=== PATIENT | male | born 1945 | race Two or more races ===

== ENCOUNTER → 2024-02-03 | Outpatient (CLI) | payer MEDICARE, MEDICAID, SELFPAY ==
[2024-02-03 09:36] LABS: Collection Type, Urine Clean Catch; Squamous Epithelial Cell,Urine 0 /hpf (0-5); WBC,Urine 0 /hpf (0-5)
[2024-02-03 09:59] LABS: Basophils % (Auto) 1 % (0-2.5); Eosinophils # (Auto) 0.1 Thou/mm3 (0.0-0.5); Eosinophils % (Auto) 2 % (0-10); Hematocrit 39.8 % (41.0-53.0); Hemoglobin 13.6 g/dL (13.5-16.0); Immature Granulocytes % (Auto) 0 % (0-0); Immature Granulocytes Auto 0.02 Thou/mm3 (0.00-0.00); Lymphocytes # (Auto) 1.4 Thou/mm3 (1.0-4.8); Lymphocytes % (Auto) 23 % (10-50); Mean Corpuscular HGB Conc 34.2 g/dl (31.0-37.0); Mean Corpuscular Hemoglobin 32.2 pg (25.0-35.0); Mean Corpuscular Volume 94 fL (80-100); Monocytes # (Auto) 0.6 Thou/mm3 (0.0-0.8); Monocytes % (Auto) 9 % (0-12); Neutrophils # (Auto) 3.9 Thou/mm3 (1.8-7.7); Neutrophils % (Auto) 64 % (37-80); Nucleated Red Blood Cell % 0 /100 WBC (0); Platelet Count 113 Thou/mm3 (140-440); RDW Standard Deviation 43.8 fL (35.1-43.9); Red Blood Count 4.23 Miln/mm3 (4.50-5.90); White Blood Count 6.1 Thou/mm3 (3.8-10.6)
[2024-02-03 10:01] LABS: Bilirubin,Urine Negative (Negative); Blood,Urine Negative (Negative); Clarity,Urine Clear (Clear/Hazy); Color,Urine Colorless (Lt Yel-Yel); Glucose, Urine Negative (Negative); Ketones,Urine Negative (Negative); Leukocyte Esterase,Urine Negative (Negative); Nitrite,Urine Negative (Negative); Protein,Urine Negative (Neg - Trace); RBC,Urine < 1 /hpf (0-3); Specific Gravity,Urine 1.012 (1.001-1.035); Urobilinogen,Urine Negative mg/dL (0.0-1.0)
[2024-02-03 10:04] LABS: Glucose Estimated Average 128 mg/dL (80-131); Hemoglobin A1C 6.1 % Hgb (4.8-6.0)
[2024-02-03 10:11] LABS: Creatinine MALB Rnd Ur 49 mg/dL (30-125); Microalbumin Creat Ratio 22 mg/gCrea (<30); Microalbumin, Random Urine 11 mg/L (0-300)
[2024-02-03 10:32] LABS: Parathyroid Hormone Intact 84.3 pg/ml (18.5-88.0)
[2024-02-03 10:41] LABS: Albumin, Serum 4.2 gm/dL (3.4-4.8); Anion Gap 3 (7-16); BUN/Creatinine Ratio 19 Ratio (12-20); Blood Urea Nitrogen 34 mg/dL (9-23); Calcium 9.5 mg/dL (8.3-10.6); Calcium (Corrected) 9.5 mg/dL (8.5-10.1); Carbon Dioxide 29.6 mMol/L (20.0-31.0); Chloride 105 mMol/L (98-107); Creatinine (Component) 1.8 mg/dL (0.6-1.3); Glucose 86 mg/dL (74-106); Magnesium 1.4 mg/dL (1.6-2.6); Osmolality,Calculated 282 (275-295); Phosphorous 3.6 mg/dL (2.4-5.1); Potassium 5.6 mMol/L (3.4-5.1); Sodium 138 mMol/L (136-145); eGFR 39 See Note
== END | disposition home or self-care (01) ==
LOC: COPL 09:14
PROVIDERS: PCP Internal Medicine; Referring Provider Internal Medicine; Visit Provider Internal Medicine
DX: I12.9 Hypertensive chronic kidney disease with stage 1 through stage 4 chronic kidney disease, or unspecified chronic kidney disease (principal); E11.22 Type 2 diabetes mellitus with diabetic chronic kidney disease; N18.30 Chronic kidney disease, stage 3 unspecified
CPT/HCPCS: 36415; 80069; 81001; 82043; 82570; 83036; 83735; 83970; 85025

== ENCOUNTER 2024-02-18 09:36 | Emergency (ER) | payer MEDICARE, MEDICAID, SELFPAY ==
[2024-02-18 09:43] VITALS: BP 158/82; PULSE 98; RESP 16; TEMP 36.4; O2SAT 96
[2024-02-18 09:44] VITALS: BMI 29.9
--- NOTE | 2024-02-18 10:14 | EKG_ITS ---
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
--- NOTE | 2024-02-18 10:14 | XR_ITS ---
Examination: AP chest single view Technique one AP portable upright chest single view Exam date and time: February 18, 2024 1019 hours Comparison July 08, 2023 INDICATIONS: Coughing weakness beginning today. FINDINGS: Mild prominence left ventricle No lobar pneumonia or pulmonary edema The osseous structures are intact IMPRESSION: No lobar pneumonia or pulmonary edema
[2024-02-18 11:28] LABS: Basophils % (Auto) 1 % (0-2.5); Eosinophils # (Auto) 0.1 Thou/mm3 (0.0-0.5); Eosinophils % (Auto) 1 % (0-10); Hematocrit 43.8 % (41.0-53.0); Hemoglobin 15.3 g/dL (13.5-16.0); Immature Granulocytes % (Auto) 0 % (0-0); Immature Granulocytes Auto 0.02 Thou/mm3 (0.00-0.00); Lymphocytes # (Auto) 0.9 Thou/mm3 (1.0-4.8); Lymphocytes % (Auto) 11 % (10-50); Mean Corpuscular HGB Conc 34.9 g/dl (31.0-37.0); Mean Corpuscular Hemoglobin 31.7 pg (25.0-35.0); Mean Corpuscular Volume 91 fL (80-100); Monocytes # (Auto) 0.6 Thou/mm3 (0.0-0.8); Monocytes % (Auto) 8 % (0-12); Neutrophils # (Auto) 6.3 Thou/mm3 (1.8-7.7); Neutrophils % (Auto) 79 % (37-80); Nucleated Red Blood Cell % 0 /100 WBC (0); Platelet Count 113 Thou/mm3 (140-440); RDW Standard Deviation 41.2 fL (35.1-43.9); Red Blood Count 4.82 Miln/mm3 (4.50-5.90); White Blood Count 7.9 Thou/mm3 (3.8-10.6)
--- NOTE | 2024-02-18 11:34 | EDNOTE_ITS ---
ED General RME/HPI General Chief complaint: Headache Stated complaint: H/A HIGH BLOOD PRESSURE Time Seen by Provider: 02/18/24 10:06 Arrival date/time: 02/18/24 09:36 RME / HPI RME / HPI narrative: 78 year old male with history of hypertension, diabetes, chronic renal insufficiency, rheumatoid arthritis presents to the ED BIBA from home for generalized weakness beginning 8 days ago and worsening this morning. reports this morning he was very weak and almost passed out which prompted her to call 911. additionally reports in the last 8 days patient is not eating or drinking, has nausea that is worse when he tries to eat, and has a dry cough. Patient states he has had no appetite and the food grosses me out . Denies fevers, chills, chest pain, shortness of breath, abdominal pain, diarrhea, constipation, or urinary symptoms. Denies any sick contacts at home. Related Data Home Medications ?Medication ?Instructions ?Recorded ?Confirmed pregabalin 150 mg capsule (Lyrica) 150 mg PO BID 04/18/21 09/02/23 ferrous sulfate 325 mg (65 mg 325 mg PO QDAY 06/28/21 09/02/23 iron) tablet losartan 50 mg-hydrochlorothiazide 1 tab PO QDAY 06/28/21 09/02/23 12.5 mg tablet tamsulosin 0.4 mg capsule 0.4 mg PO DAILY 06/28/21 09/02/23 atorvastatin 80 mg tablet 80 mg PO QPM 08/28/23 09/02/23 citalopram 20 mg tablet (Celexa) 20 mg PO QDAY 08/28/23 09/02/23 clopidogrel 75 mg tablet (Plavix) 75 mg PO QDAY 08/28/23 09/02/23 donepezil 23 mg tablet (Aricept) 23 mg PO QDAY 08/28/23 09/02/23 levothyroxine 25 mcg capsule 25 mcg PO QDAY 08/28/23 09/02/23 sitagliptin phosphate 100 mg 100 mg PO QDAY 08/28/23 09/02/23 tablet (Januvia) sumatriptan succinate 100 mg tablet 100 mg PO Q2H PRN Migraine Headache 08/28/23 09/02/23 zolpidem 10 mg tablet (Ambien) 10 mg PO HS 08/28/23 09/02/23 Previous Rx's ?Medication ?Instructions ?Recorded amoxicillin 875 mg-potassium 1 tab PO BID #10 tabs 01/17/24 clavulanate 125 mg tablet Allergies Allergy/AdvReac Type Severity Reaction Status Date / Time morphine Allergy Severe Itching Verified 01/05/24 10:26 Review of Systems Review of Systems Narrative Review of Systems: Gen: No fever, no chills, no weight loss, +generalized weakness EYES: No discharge, no visual changes, no pain HEENT: No ear pain, no congestion, no sore throat PULM: no shortness of breath, +cough, no congestion CV: No chest pain, no dyspnea on exertion, no palpitations, no chest tightness GI: +nausea, +decreased appetite, no vomiting, no diarrhea, no pain, no constipation : No frequency, no urgency,? no dysuria Musc/skel: No joint pain, no back pain Skin: No rash, no ecchymosis, no lesions Neuro: No headache Past Medical History Past Medical History NEUROLOGIC: Positive Dementia and Migraine CARDIAC: Positive Cardiac Disorders, Coronary Artery Disease, Hypercholesterolemia, Congestive Heart Failure and Hypertension GASTROINTESTINAL: Positive Gastrointestinal Disorders and Obesity GENITOURINARY: Positive Genitourinary Disorders, Renal Disease and Benign Prostatic Hyperplasia MUSCULOSKELETAL: Positive Musculoskeletal Disorders, Arthritis and Gout ENT: Positive Cataracts ENDOCRINE: Positive Endocrine Disorders, Diabetes Mellitus Type 2 and Hypothyroidism PSYCHO/SOCIAL: Positive Depression and Anxiety Family History FAMILY HISTORY: Positive Family Cardiac Disorders and Family Cancer Surgical History SURGICAL: Positive Cardiac Surgery, Coronary Stent, Angiogram and Abdominal Surgery Social History SMOKING STATUS: Never smoker SUBSTANCE USE: does not use ED Exam Narrative Physical exam: GENERAL APPEARANCE: AxOx4, no obvious distress, nontoxic appearing HEENT: NC, AT. MMM. EOMI, clear conjunctiva, oropharynx clear. NECK: Supple without lymphadenopathy. No stiffness or restricted ROM. HEART: Normal rate and regular rhythm, normal S1/S1, no m/r/g LUNGS: CTAB, moving air well. No crackles or wheezes are heard. ABDOMEN: Soft, nontender, nondistended with good bowel sounds heard. BACK: No midline C/T/L spine pain or deformity, No CVAT, no obvious deformity. EXTREMITIES: Without cyanosis, clubbing or edema. MUSCULOSKELETAL: FROM of all major joints, no chest tenderness NEUROLOGICAL: Grossly nonfocal. Alert and oriented, moving all 4 extremities. CN not formally tested but appear grossly intact. Skin: Warm and dry without any rash. Course Quality Measures none Orders Category Date Time Status Bedside COVID-19 Antigen Test NOW Care 02/18/24 10:14 Active Bedside Influenza A&B Antigen Test NOW Care 02/18/24 10:14 Completed EKG (ED ONLY) *Do not use* NOW Care 02/18/24 10:[address] head/brain wo con Stat Exams 02/18/24 13:20 Completed EKG (ED Only) Stat Exams 02/18/24 10:14 Draft XR chest 1V Stat Exams 02/18/24 10:14 Completed BNP [B-Type Natriuretic Peptide] Stat Lab 02/18/24 13:44 Completed CBC Stat Lab 02/18/24 11:19 Completed CMP [Comprehensive Metabolic Panel] Stat Lab 02/18/24 11:19 Completed Lactate (Lactic Acid) Stat Lab 02/18/24 13:44 Results Magnesium Stat Lab 02/18/24 13:44 Completed Magnesium Stat Lab 02/18/24 14:42 Ordered Procalcitonin Stat Lab 02/18/24 13:44 Completed TSH [Thyroid Stimulating Hormone] Stat Lab 02/18/24 13:44 Completed Troponin I Stat Lab 02/18/24 13:44 Completed Urinalysis Stat Lab 02/18/24 14:30 Completed Aspirin Med 02/18/24 13:19 Discontinued 325 mg PO X1 ONE Magnesium Sulfate 2 GM Ivpb [Magnesium Sulfate Ivpb] Med 02/18/24 14:43 Active 2 gm in 50 ml IV X1 Sodium Chloride 0.9% 1000 ml [Ns] 1,000 ml Med 02/18/24 10:13 Discontinued IV 999 mls/hr Sodium Chloride 0.9% 1000 ml [Ns] 1,000 ml Med 02/18/24 13:13 Discontinued IV 999 mls/hr Reevaluation(s) Reevaluation #1: Patient had a run of vtach. Added additional labs. RN reports patient has received 1L of fluids and slowly was able to walk to the restroom. Time: 13:15 Reevaluation #2: Re-assessment: patient had several tremors that is noted in complicating his telemetry. I discussed this with his and this has been a worsening issue for the last 2 to 3 years. He?s becoming increasingly forgetful and she also has noted that his appetite has been decreasing for the last several years. She only comes in now because he has eaten very little for the last three days almost nothing at times. This has been discussed with his doctor two weeks ago, he was started on Aricept. does not feel that has improved his tremors or appetite. They are still trying to get in to see his primary care physician Dr. Cardenas about these issues. He has been able to ambulate here in the emergency department. He appears to be improved since the IV fluids. She feels comfortable taking him home. She agrees to contact Dr. Cardenas's office for possible referral to neurology, Dr. Rendon, for further work up above his tremors and change in mental status. She will also follow up with Dr. Booker this coming week for recheck and starting his Aricept. Patient remains clinically stable throughout the emergency department visit. Re- assessment at the time of disposition demonstrates that the patient is in no acute distress. We reviewed all the results, analysis, and treatment plans. Patient is amenable to discharge. Strict return precautions were outlined. Patient was discharged in stable condition. Time: 15:42 Vital Signs Vital signs: Vital Signs Temperature 97.6 F 02/18/24 09:43 Pulse Rate 98 02/18/24 09:43 Respiratory Rate 16 02/18/24 09:43 Blood Pressure 158/82 H 02/18/24 09:43 Pulse Oximetry (%) 96 02/18/24 09:43 Oxygen Delivery Method Room Air 02/18/24 09:43 Pulse ox is 96% on room air which is adequate. [facility] Patient data External records reviewed:: [facility] previous records (I reviewed ED visit on 01/17/2024) and EMS form Clinical information provided by:: patient and spouse (- adds to hpi ) Social determinants that could affect healthcare access:: none Patient has the following chronic illnesses:: hypertension, diabetes, chronic renal insufficiency, rheumatoid arthritis How is presenting disease/condition affected by chronic disease/condition?: e xacerbated by Evaluation data The following diagnostics were reviewed and interpreted by me:: lab results, radiology exam(s) and EKG tracing(s) (Normal sinus rhythm, HR 92, normal axis, normal interval, no acute ST or T-wave changes, no STEMI. ) Lab and/or radiology exams considered but not ordered:: None Interpretation Summary: Ordering Physician: Thang Tobin MD Date of Service: 02/18/24 Procedure(s): XR chest 1V Accession Number(s): [id number] cc: Thang Tobin MD; Marta Bang MD; Lam Meraz MD~ Examination: AP chest single view Technique one AP portable upright chest single view Exam date and time: February 18, 2024 1019 hours Comparison July 08, 2023 INDICATIONS: Coughing weakness beginning today. FINDINGS: Mild prominence left ventricle No lobar pneumonia or pulmonary edema The osseous structures are intact IMPRESSION: No lobar pneumonia or pulmonary edema Dictated By:Lam Meraz MD Signed By:<Electronically signed by Lam Meraz MD in >02/18/24 1033 Procedure(s): CT head/brain wo con Accession Number(s): [id number] cc: Thang Tobin MD; Marta Bang MD; aLm Meraz MD~ Examination: CT brain head without contrast. 2-D sagittal coronal reconstructions Date and time of exam:February 18, 2024 1440 hours INDICATIONS: Headaches generalized weakness today, history stroke left basal ganglia COMPARISON: January 17, 2024 Comparison January 17, 2024 CTDI: vol (mGy):6.3 DLP: (mGycm):1202 Technique: Multiple CT axial sections of the brain have been obtained, 5 mm slice thickness. Contrast has not been administered. 2-D sagittal, coronal reconstructions have been obtained Low dose protocols were performed. One or more of the following dose reduction techniques were used; automated exposure control, adjustment of the mA and/or KV according to patient size, use of iterative reconstruction technique. Findings: No significant ventricular enlargement. Unchanged old infarct left basal ganglia with mild ipsilateral ventricular dilatation Intra-axial or extra-axial hemorrhage density is not seen. No mass effect or midline shift Basal cisterns are not remarkable. Fourth ventricle is midline. Cranial vault intact. Impression: Negative for acute hemorrhage, mass effect or midline shift Brain MRI follow-up would best assess for acute ischemic change Dictated By: Lam Meraz MD Medications Medications considered but not ordered:: None Medication administrations:: Medication Administration History Magnesium Sulfate (Magnesium Sulfate Ivpb) 2 gm in 50 mls @ 25 mls/hr IV X1 ONE Stop: 02/18/24 16:42 Discontinued Medications Aspirin (Aspirin 325 Mg Tablet) 325 mg PO X1 ONE Stop: 02/18/24 13:20 Last Admin: 02/18/24 13:47 Dose: 325 mg Documented By: ARF Sodium Chloride (Ns) 1,000 mls @ 999 mls/hr IV .Q1H1M ONE Stop: 02/18/24 11:13 Last Infusion: 02/18/24 13:46 Dose: Infused Documented By: Admin: 02/18/24 11:47 Dose: 999 mls/hr Documented By: ARF Sodium Chloride (Ns) 1,000 mls @ 999 mls/hr IV .Q1H1M ONE Stop: 02/18/24 14:13 Last Admin: 02/18/24 13:35 Dose: 999 mls/hr Documented By: ARF See above Consultations Consultation(s) initiated? (list below): No Diagnosis Differential Diagnosis ED Complaint MDM: Dehydration, electrolyte imbalance, viral illness, pneumonia Most likely diagnosis given after review of the tests above:: Coarse tremors Anorexia Chronic kidney disease Admission Indicated Admission indicated?: not indicated Explain why admission is indicated or not indicated:: Patient has no emergent abnormalities on his studies and can be managed on an outpatient basis. Admission Request Was there a request for admission?: No Disposition Plan Disposition Plan: Discharge Discharge Attestation Discharge Attestation: The patient and all family members were given an opportunity to ask questions and understood the discharge instructions. Discharge instructions specifically effects, indications for sooner follow up or return to the emergency department, and the expected course of current diagnosis. Patient condition: Stable Medical Decision Making Differential Diagnosis Differential Diagnosis: Dehydration, electrolyte imbalance, viral illness, pneumonia Lab Data 02/18/24 11:19 02/18/24 11:19 Labs: Lab Results 02/18/24 02/18/24 02/18/24 Range/Units 11:19 13:44 14:30 WBC 7.9 (3.8-10.6) Thou/mm3 RBC 4.82 (4.50-5.90) Miln/mm3 Hgb 15.3 (13.5-16.0) g/dL Hct 43.8 (41.0-53.0) % MCV 91 (80-100) fL MCH 31.7 (25.0-35.0) pg MCHC 34.9 (31.0-37.0) g/dl RDW Std Deviation 41.2 (35.1-43.9) fL Plt Count 113 L (140-440) Thou/mm3 Neut % (Auto) 79 (37-80) % Lymph % (Auto) 11 (10-50) % [place] % (Auto) 8 (0-12) % Eos % (Auto) 1 (0-10) % Baso % (Auto) 1 (0-2.5) % Neut # (Auto) 6.3 (1.8-7.7) Thou/mm3 Lymph # (Auto) 0.9 L (1.0-4.8) Thou/mm3 [place] # (Auto) 0.6 (0.0-0.8) Thou/mm3 Eos # (Auto) 0.1 (0.0-0.5) Thou/mm3 Baso # (Auto) 0.0 (0.0-0.2) Thou/mm3 Immature Gran # (Auto) 0.02 H (0.00-0.00) Thou/mm3 Absolute Nucleated RBC 0.00 (0.00-0.00) Thou/mm3 Immature Gran % 0 (0-0) % Nucleated RBC % 0 (0) /100 WBC Sodium 136 (136-145) mMol/L Potassium 5.6 H (3.4-5.1) mMol/L Chloride 103 (98-107) mMol/L Carbon Dioxide 28.3 (20.0-31.0) mMol/L Anion Gap 5 L (7-16) BUN 29 H (9-23) mg/dL Creatinine 2.2 H (0.6-1.3) mg/dL Estim Creat Clear Calc 28.1 L (>60) mL/min eGFR 30 L (60 - ) See Note BUN/Creatinine Ratio 13 (12-20) Ratio Glucose 109 H (74-106) mg/dL Calculated Osmolality 278 (275-295) Lactic Acid 2.6 H (0.4-2.0) mMol/L Calcium 10.3 (8.3-10.6) mg/dL Corrected Calcium 10.3 H (8.5-10.1) mg/dL Magnesium 1.4 L (1.6-2.6) mg/dL Total Bilirubin 0.8 (0.3-1.2) mg/dL AST 62 H (0-34) U/L ALT 74 H (10-49) U/L Alkaline Phosphatase 111 (46-116) U/L Troponin I < 0.020 (0.0-0.045) ng/mL B-Natriuretic Peptide 25 (0-100) pg/mL Total Protein 7.7 (5.7-8.2) gm/dL Albumin 4.6 (3.4-4.8) gm/dL Globulin 3.1 (2.3-3.5) gm/dL Albumin/Globulin Ratio 1.5 (1.2-2.2) Procalcitonin Cancelled 0.15 TSH 1.86 (0.55-4.78) uIU/mL Ur Collection Type Clean Catch Urine Color Yellow (Lt Yel-Yel) Urine Clarity Clear (Clear/Hazy) Urine pH 6.5 (5.0-7.0) Ur Specific [place] 1.018 (1.001-1.035) Urine Protein Trace (Neg - Trace) Urine Glucose (UA) Negative (Negative) Urine Ketones 1+ A (Negative) Urine Blood Negative (Negative) Urine Nitrite Negative (Negative) Urine Bilirubin Negative (Negative) Urine Urobilinogen (Auto) Negative (0.0-1.0) mg/dL Ur Leukocyte Esterase Negative (Negative) Urine RBC 15 H (0-3) /hpf Urine WBC 5 (0-5) /hpf Ur Squamous Epith Cells < 1 (0-5) /hpf Urine Bacteria None (None) Hyaline Casts < 1 (0-1) /hpf Urine Sperm Present A (None) Discharge Plan Plan Patient Disposition: HOME (Self Care) Prescriptions/Referrals Prescriptions/Med Rec: No Action pregabalin [Lyrica] 150 mg capsule 150 mg PO BID tamsulosin 0.4 mg capsule 0.4 mg PO DAILY Patient Comments: TAKE 1 CAPSULE BY MOUTH EVERY DAY 1/2 HOUR FOLLOWING THE SAME MEAL EACH DAY Rx Instructions: 30 min after same meal each day ferrous sulfate 325 mg (65 mg iron) tablet 325 mg PO QDAY Patient Comments: TAKE 1 TABLET BY MOUTH EVERY DAY losartan-hydrochlorothiazide 50-12.5 mg tablet 1 tab PO QDAY atorvastatin 80 mg Tablet 80 mg PO QPM sumatriptan succinate 100 mg Tablet 100 mg PO Q2H PRN (Reason: Migraine Headache) Rx Instructions: do not exceed 2 doses per 24 hrs clopidogrel [Plavix] 75 mg Tablet 75 mg PO QDAY citalopram [Celexa] 20 mg Tablet 20 mg PO QDAY zolpidem [Ambien] 10 mg Tablet 10 mg PO HS Januvia 100 mg Tablet 100 mg PO QDAY levothyroxine 25 mcg Capsule 25 mcg PO QDAY donepezil [Aricept] 23 mg Tablet 23 mg PO QDAY amoxicillin-pot clavulanate 875-125 mg tablet 1 tab PO BID Qty: 10 0RF Referrals: Marta Bang [Primary Care Provider] - In 1 week Problem List Clinical Impression: Coarse tremors, Anorexia, Chronic kidney disease Patient/Caregiver Discharge Instructions Education Materials: ED Diet for Chronic Kidney Disease Additional Instructions: Yousuf un seguimiento con garvey m?dico de atenci?n primaria para sergo posible derivaci?n a neurolog?a, el Dr. Hampton, para un an?lisis m?s detallado de suzanna temblores, movilidad y funci?n cognitiva. Yousuf un seguimiento con el Dr. Flower en 3 a 5 d?as para volver a controlarlo desde que comenz? garvey Aricept. Puede regresar al departamento de emergencias antes si los s?ntomas empeoran o si nota alg?n problema nuevo y preocupante. Print Language: Danish Stand Alone Forms: Tess Award Info., Patient Portal Info Letter
[2024-02-18 11:44] LABS: Alanine Aminotransferase 74 U/L (10-49); Albumin, Serum 4.6 gm/dL (3.4-4.8); Albumin/Globulin Ratio 1.5 (1.2-2.2); Alkaline Phosphatase 111 U/L (46-116); Anion Gap 5 (7-16); Aspartate Amino Transferase 62 U/L (0-34); BUN/Creatinine Ratio 13 Ratio (12-20); Bilirubin,Total 0.8 mg/dL (0.3-1.2); Blood Urea Nitrogen 29 mg/dL (9-23); Calcium 10.3 mg/dL (8.3-10.6); Calcium (Corrected) 10.3 mg/dL (8.5-10.1); Carbon Dioxide 28.3 mMol/L (20.0-31.0); Chloride 103 mMol/L (98-107); Creatinine (Component) 2.2 mg/dL (0.6-1.3); Estimated Creatinine Clearance 28.1 mL/min (>60); Globulin 3.1 gm/dL (2.3-3.5); Glucose 109 mg/dL (74-106); Osmolality,Calculated 278 (275-295); Potassium 5.6 mMol/L (3.4-5.1); Sodium 136 mMol/L (136-145); Total Protein 7.7 gm/dL (5.7-8.2); eGFR 30 See Note
[2024-02-18] MEDS: SODIUM CHLORIDE 0.9% 1000 ML 1,000 ML 999 ML IV ×2 (11:47→13:35)
[2024-02-18 12:00] VITALS: BP 173/78; PULSE 90; RESP 20; O2SAT 96
--- NOTE | 2024-02-18 13:20 | XR_ITS ---
Examination: CT brain head without contrast. 2-D sagittal coronal reconstructions Date and time of exam:February 18, 2024 1440 hours INDICATIONS: Headaches generalized weakness today, history stroke left basal ganglia COMPARISON: January 17, 2024 Comparison January 17, 2024 CTDI: vol (mGy):6.3 DLP: (mGycm):1202 Technique: Multiple CT axial sections of the brain have been obtained, 5 mm slice thickness. Contrast has not been administered. 2-D sagittal, coronal reconstructions have been obtained Low dose protocols were performed. One or more of the following dose reduction techniques were used; automated exposure control, adjustment of the mA and/or KV according to patient size, use of iterative reconstruction technique. Findings: No significant ventricular enlargement. Unchanged old infarct left basal ganglia with mild ipsilateral ventricular dilatation Intra-axial or extra-axial hemorrhage density is not seen. No mass effect or midline shift Basal cisterns are not remarkable. Fourth ventricle is midline. Cranial vault intact. Impression: Negative for acute hemorrhage, mass effect or midline shift Brain MRI follow-up would best assess for acute ischemic change
[2024-02-18] MEDS: Aspirin 325 MG TABLET PO (13:47)
[2024-02-18 14:12] LABS: Lactate (Lactic Acid) 2.6 mMol/L (0.4-2.0)
[2024-02-18 14:23] LABS: B-Type Natriuretic Peptide 25 pg/mL (0-100)
[2024-02-18 14:31] LABS: Magnesium 1.4 mg/dL (1.6-2.6); Procalcitonin 0.15 ng/ml (0.0-0.49); Thyroid Stimulating Hormone 1.86 uIU/mL (0.55-4.78); Troponin I < 0.020 ng/mL (0.0-0.045)
[2024-02-18 15:25] LABS: Collection Type, Urine Clean Catch
[2024-02-18 15:38] LABS: Bilirubin,Urine Negative (Negative); Blood,Urine Negative (Negative); Clarity,Urine Clear (Clear/Hazy); Color,Urine Yellow (Lt Yel-Yel); Glucose, Urine Negative (Negative); Hyaline Casts,Urine < 1 /hpf (0-1); Ketones,Urine 1+ (Negative); Leukocyte Esterase,Urine Negative (Negative); Nitrite,Urine Negative (Negative); PH,Urine 6.5 (5.0-7.0); Protein,Urine Trace (Neg - Trace); RBC,Urine 15 /hpf (0-3); Specific Gravity,Urine 1.018 (1.001-1.035); Squamous Epithelial Cell,Urine < 1 /hpf (0-5); Urobilinogen,Urine Negative mg/dL (0.0-1.0); WBC,Urine 5 /hpf (0-5)
[2024-02-18 15:46] LABS: Sperm,Urine Present
[2024-02-18] MEDS: Magnesium Sulfate 2 GM Ivpb 2 GM/50 ML BAG IV (16:07)
[2024-02-18 16:28] VITALS: BP 137/72; PULSE 87; RESP 10; TEMP 36.6; O2SAT 96
[2024-02-18 17:02] LABS: Reflex Lactate? Y
== END 2024-02-18 16:34 | disposition home or self-care (01) ==
PROVIDERS: Emergency Provider Emergency Medicine; PCP Internal Medicine
DX: G25.2 Other specified forms of tremor (principal); I13.0 Hypertensive heart and chronic kidney disease with heart failure and stage 1 through stage 4 chronic kidney disease, or unspecified chronic kidney disease; N18.9 Chronic kidney disease, unspecified; R63.0 Anorexia; R53.1 Weakness; R51.9 Headache, unspecified; R05.9 Cough, unspecified; E11.22 Type 2 diabetes mellitus with diabetic chronic kidney disease; I25.10 Atherosclerotic heart disease of native coronary artery without angina pectoris; E78.00 Pure hypercholesterolemia, unspecified; Z86.73 Personal history of transient ischemic attack (TIA), and cerebral infarction without residual deficits; Z79.84 Long term (current) use of oral hypoglycemic drugs
CPT/HCPCS: 36415; 70450; 71045; 80053; 81001; 83605; 83735; 83880; 84145; 84443; 84484; 85025; 87400; 87811; 93005; 99284; J3475; J7030; A9270

== ENCOUNTER → 2024-04-09 | Outpatient (CLI) | payer MEDICARE, MEDICAID, SELFPAY ==
[2024-04-09 09:08] LABS: Basophils % (Auto) 1 % (0-2.5); Eosinophils # (Auto) 0.4 Thou/mm3 (0.0-0.5); Eosinophils % (Auto) 7 % (0-10); Hematocrit 33.8 % (41.0-53.0); Hemoglobin 11.8 g/dL (13.5-16.0); Immature Granulocytes % (Auto) 0 % (0-0); Immature Granulocytes Auto 0.02 Thou/mm3 (0.00-0.00); Lymphocytes # (Auto) 1.6 Thou/mm3 (1.0-4.8); Lymphocytes % (Auto) 24 % (10-50); Mean Corpuscular HGB Conc 34.9 g/dl (31.0-37.0); Mean Corpuscular Hemoglobin 32.2 pg (25.0-35.0); Mean Corpuscular Volume 92 fL (80-100); Monocytes # (Auto) 0.7 Thou/mm3 (0.0-0.8); Monocytes % (Auto) 10 % (0-12); Neutrophils # (Auto) 3.9 Thou/mm3 (1.8-7.7); Neutrophils % (Auto) 59 % (37-80); Nucleated Red Blood Cell % 0 /100 WBC (0); Platelet Count 129 Thou/mm3 (140-440); RDW Standard Deviation 42.9 fL (35.1-43.9); Red Blood Count 3.67 Miln/mm3 (4.50-5.90); White Blood Count 6.7 Thou/mm3 (3.8-10.6)
[2024-04-09 09:34] LABS: Albumin, Serum 4.3 gm/dL (3.4-4.8); Anion Gap 5 (7-16); BUN/Creatinine Ratio 33 Ratio (12-20); Blood Urea Nitrogen 75 mg/dL (9-23); Calcium 9.8 mg/dL (8.3-10.6); Calcium (Corrected) 9.8 mg/dL (8.5-10.1); Carbon Dioxide 27.5 mMol/L (20.0-31.0); Chloride 108 mMol/L (98-107); Creatinine (Component) 2.3 mg/dL (0.6-1.3); Glucose 129 mg/dL (74-106); Osmolality,Calculated 303 (275-295); Sodium 140 mMol/L (136-145); eGFR 29 See Note
== END | disposition home or self-care (01) ==
LOC: COPL 08:05
PROVIDERS: PCP Internal Medicine; Referring Provider Internal Medicine; Visit Provider Internal Medicine
DX: I12.9 Hypertensive chronic kidney disease with stage 1 through stage 4 chronic kidney disease, or unspecified chronic kidney disease (principal); E11.22 Type 2 diabetes mellitus with diabetic chronic kidney disease; N18.30 Chronic kidney disease, stage 3 unspecified
CPT/HCPCS: 36415; 80069; 85025

== ENCOUNTER → 2024-04-15 | Outpatient (CLI) | payer MEDICARE, MEDICAID, SELFPAY ==
[2024-04-15 12:52] LABS: Collection Type, Urine Clean Catch; Squamous Epithelial Cell,Urine 0 /hpf (0-5)
[2024-04-15 13:17] LABS: Basophils % (Auto) 1 % (0-2.5); Eosinophils # (Auto) 0.4 Thou/mm3 (0.0-0.5); Eosinophils % (Auto) 5 % (0-10); Hematocrit 33.6 % (41.0-53.0); Hemoglobin 11.6 g/dL (13.5-16.0); Immature Granulocytes % (Auto) 0 % (0-0); Immature Granulocytes Auto 0.02 Thou/mm3 (0.00-0.00); Lymphocytes # (Auto) 1.4 Thou/mm3 (1.0-4.8); Lymphocytes % (Auto) 21 % (10-50); Mean Corpuscular HGB Conc 34.5 g/dl (31.0-37.0); Mean Corpuscular Hemoglobin 32.2 pg (25.0-35.0); Mean Corpuscular Volume 93 fL (80-100); Monocytes # (Auto) 0.7 Thou/mm3 (0.0-0.8); Monocytes % (Auto) 10 % (0-12); Neutrophils # (Auto) 4.2 Thou/mm3 (1.8-7.7); Neutrophils % (Auto) 62 % (37-80); Nucleated Red Blood Cell % 0 /100 WBC (0); Platelet Count 109 Thou/mm3 (140-440); RDW Standard Deviation 44.8 fL (35.1-43.9); White Blood Count 6.7 Thou/mm3 (3.8-10.6)
[2024-04-15 13:21] LABS: Glucose Estimated Average 128 mg/dL (80-131); Hemoglobin A1C 6.1 % Hgb (4.8-6.0)
[2024-04-15 13:24] LABS: Creatinine MALB Rnd Ur 125 mg/dL (30-125); Microalbumin, Random Urine < 3 mg/L (0-300)
[2024-04-15 13:30] LABS: Albumin, Serum 4.2 gm/dL (3.4-4.8); Anion Gap 3 (7-16); BUN/Creatinine Ratio 25 Ratio (12-20); Blood Urea Nitrogen 61 mg/dL (9-23); Carbon Dioxide 26.9 mMol/L (20.0-31.0); Chloride 109 mMol/L (98-107); Creatinine (Component) 2.4 mg/dL (0.6-1.3); Glucose 118 mg/dL (74-106); Osmolality,Calculated 295 (275-295); Phosphorous 4.7 mg/dL (2.4-5.1); Sodium 139 mMol/L (136-145); eGFR 27 See Note
[2024-04-15 13:40] LABS: Bilirubin,Urine Negative (Negative); Blood,Urine Negative (Negative); Clarity,Urine Clear (Clear/Hazy); Color,Urine Lt-Yellow (Lt Yel-Yel); Glucose, Urine Negative (Negative); Ketones,Urine Negative (Negative); Leukocyte Esterase,Urine Negative (Negative); Nitrite,Urine Negative (Negative); PH,Urine 6.5 (5.0-7.0); Protein,Urine Negative (Neg - Trace); RBC,Urine 4 /hpf (0-3); Specific Gravity,Urine 1.019 (1.001-1.035); Urobilinogen,Urine Negative mg/dL (0.0-1.0); WBC,Urine 1 /hpf (0-5)
== END | disposition home or self-care (01) ==
PROVIDERS: PCP Internal Medicine; Referring Provider Internal Medicine; Visit Provider Internal Medicine
DX: E11.9 Type 2 diabetes mellitus without complications (principal); I10 Essential (primary) hypertension; N17.9 Acute kidney failure, unspecified
CPT/HCPCS: 36415; 80069; 81001; 82043; 82570; 83036; 85025

== ENCOUNTER → 2024-04-20 | Outpatient (CLI) | payer MEDICARE, MEDICAID, SELFPAY ==
[2024-04-20 11:27] LABS: Basophils % (Auto) 1 % (0-2.5); Eosinophils # (Auto) 0.4 Thou/mm3 (0.0-0.5); Eosinophils % (Auto) 7 % (0-10); Hematocrit 33.4 % (41.0-53.0); Hemoglobin 11.5 g/dL (13.5-16.0); Immature Granulocytes % (Auto) 0 % (0-0); Immature Granulocytes Auto 0.02 Thou/mm3 (0.00-0.00); Lymphocytes % (Auto) 16 % (10-50); Mean Corpuscular HGB Conc 34.4 g/dl (31.0-37.0); Mean Corpuscular Hemoglobin 32.3 pg (25.0-35.0); Mean Corpuscular Volume 94 fL (80-100); Monocytes # (Auto) 0.6 Thou/mm3 (0.0-0.8); Monocytes % (Auto) 9 % (0-12); Neutrophils # (Auto) 4.3 Thou/mm3 (1.8-7.7); Neutrophils % (Auto) 67 % (37-80); Nucleated Red Blood Cell % 0 /100 WBC (0); Platelet Count 115 Thou/mm3 (140-440); RDW Standard Deviation 43.5 fL (35.1-43.9); Red Blood Count 3.56 Miln/mm3 (4.50-5.90); White Blood Count 6.4 Thou/mm3 (3.8-10.6)
[2024-04-20 11:31] LABS: Partial Thromboplastin Time 27.3 Seconds (22.0-36.0); Prothrombin Time 11.4 Seconds (9.0-12.2)
[2024-04-20 11:33] LABS: Collection Type, Urine Clean Catch; Squamous Epithelial Cell,Urine 0 /hpf (0-5)
[2024-04-20 11:45] LABS: Glucose Estimated Average 128 mg/dL (80-131); Hemoglobin A1C 6.1 % Hgb (4.8-6.0)
[2024-04-20 11:54] LABS: Alanine Aminotransferase 23 U/L (10-49); Albumin, Serum 4.4 gm/dL (3.4-4.8); Albumin/Globulin Ratio 1.7 (1.2-2.2); Alkaline Phosphatase 105 U/L (46-116); Anion Gap 7 (7-16); Aspartate Amino Transferase 16 U/L (0-34); BUN/Creatinine Ratio 23 Ratio (12-20); Bilirubin,Direct 0.2 mg/dL (0.0-0.3); Bilirubin,Total 0.5 mg/dL (0.3-1.2); Blood Urea Nitrogen 42 mg/dL (9-23); Calcium 9.5 mg/dL (8.3-10.6); Calcium (Corrected) 9.5 mg/dL (8.5-10.1); Carbon Dioxide 25.6 mMol/L (20.0-31.0); Cardiac Risk Estimate 2.9 RATIO (4.0-6.7); Chloride 107 mMol/L (98-107); Cholesterol 82 mg/dL (132-200); Creatinine (Component) 1.8 mg/dL (0.6-1.3); Free T4 (Free Thyroxine) 0.94 ng/dL (0.89-1.76); Globulin 2.6 gm/dL (2.3-3.5); Glucose 119 mg/dL (74-106); HDL Cholesterol 28 mg/dL (40-60); LDL Cholesterol,Calculated 30 mg/dL (0-130); Osmolality,Calculated 290 (275-295); Phosphorous 3.3 mg/dL (2.4-5.1); Potassium 5.4 mMol/L (3.4-5.1); Sodium 140 mMol/L (136-145); Thyroid Stimulating Hormone 1.98 uIU/mL (0.55-4.78); Triglycerides 122 mg/dL (30-150); Uric Acid 8.3 mg/dL (3.7-9.2); eGFR 39 See Note
[2024-04-20 11:55] LABS: C-Reactive Protein < 0.4 mg/dL (0.0-0.9)
[2024-04-20 11:57] LABS: Vitamin D 25 Hydroxy Total 75.6 ng/mL (7.3-40.2)
[2024-04-20 12:03] LABS: Sed Rate (ESR) 22 mm/hr (0-20)
[2024-04-20 12:05] LABS: Ferritin 197 ng/mL (10.5-307.3); Total Iron Binding Capacity 255 mcg/dL (250-425)
[2024-04-20 12:15] LABS: Iron 98 mcg/dL (65-175)
[2024-04-20 12:35] LABS: Bilirubin,Urine Negative (Negative); Blood,Urine Negative (Negative); Clarity,Urine Clear (Clear/Hazy); Color,Urine Lt-Yellow (Lt Yel-Yel); Culture Indicated,Urine Not Indicated; Glucose, Urine Negative (Negative); Ketones,Urine Negative (Negative); Leukocyte Esterase,Urine Negative (Negative); Nitrite,Urine Negative (Negative); PH,Urine 5.5 (5.0-7.0); Protein,Urine Negative (Neg - Trace); RBC,Urine 1 /hpf (0-3); Specific Gravity,Urine 1.014 (1.001-1.035); Urobilinogen,Urine Negative mg/dL (0.0-1.0); WBC,Urine < 1 /hpf (0-5)
[2024-04-20 12:45] LABS: Quantiferon-TB* See Sep Rpt
[2024-04-20 13:05] LABS: Creatinine MALB Rnd Ur 80 mg/dL (30-125); Microalbumin, Random Urine < 3 mg/L (0-300)
[2024-05-01 13:51] LABS: PSA, Free 0.22 ng/mL; PSA, Total 0.9 ng/mL (< OR = 4.0)
[2024-05-03 06:43] LABS: T3 Uptake* 29 % (22-35)
== END | disposition home or self-care (01) ==
LOC: COPL 10:31
PROVIDERS: PCP Internal Medicine; Referring Provider Nurse Practitioner Family; Visit Provider Nurse Practitioner Family
DX: Z00.00 Encounter for general adult medical examination without abnormal findings (principal); M54.2 Cervicalgia; R41.3 Other amnesia; N40.1 Benign prostatic hyperplasia with lower urinary tract symptoms; J45.909 Unspecified asthma, uncomplicated; E87.5 Hyperkalemia; Z23 Encounter for immunization; R53.83 Other fatigue; M25.562 Pain in left knee; E78.5 Hyperlipidemia, unspecified; R79.89 Other specified abnormal findings of blood chemistry; I12.9 Hypertensive chronic kidney disease with stage 1 through stage 4 chronic kidney disease, or unspecified chronic kidney disease; E11.22 Type 2 diabetes mellitus with diabetic chronic kidney disease; N18.32 Chronic kidney disease, stage 3b; R09.81 Nasal congestion; G89.29 Other chronic pain; M13.0 Polyarthritis, unspecified; M48.061 Spinal stenosis, lumbar region without neurogenic claudication; M75.121 Complete rotator cuff tear or rupture of right shoulder, not specified as traumatic; M25.511 Pain in right shoulder; R74.8 Abnormal levels of other serum enzymes; U07.1 COVID-19; N39.0 Urinary tract infection, site not specified; L29.9 Pruritus, unspecified; Z79.899 Other long term (current) drug therapy; M25.522 Pain in left elbow; R42 Dizziness and giddiness; G47.00 Insomnia, unspecified; E11.65 Type 2 diabetes mellitus with hyperglycemia; K59.04 Chronic idiopathic constipation; D50.9 Iron deficiency anemia, unspecified; R63.0 Anorexia; R29.898 Other symptoms and signs involving the musculoskeletal system; R11.2 Nausea with vomiting, unspecified; R10.9 Unspecified abdominal pain; Z20.820 Contact with and (suspected) exposure to varicella; L40.9 Psoriasis, unspecified; M54.9 Dorsalgia, unspecified; E03.9 Hypothyroidism, unspecified; F41.9 Anxiety disorder, unspecified; Z13.820 Encounter for screening for osteoporosis; K59.00 Constipation, unspecified; M25.561 Pain in right knee; M48.00 Spinal stenosis, site unspecified; M10.9 Gout, unspecified; Z09 Encounter for follow-up examination after completed treatment for conditions other than malignant neoplasm; R51.9 Headache, unspecified; G62.9 Polyneuropathy, unspecified; E78.2 Mixed hyperlipidemia
CPT/HCPCS: 36415; 80053; 80061; 81001; 82043; 82248; 82306; 82570; 82728; 83036; 83540; 83550; 84100; 84153; 84154; 84439; 84443; 84479; 84550; 85025; 85610; 85652; 85730; 86140; 86480

== ENCOUNTER → 2024-05-28 | Outpatient (CLI) | payer MEDICARE, MEDICAID, SELFPAY ==
[2024-05-28 08:41] LABS: Albumin, Serum 4.5 gm/dL (3.4-4.8); Anion Gap 10 (7-16); BUN/Creatinine Ratio 15 Ratio (12-20); Blood Urea Nitrogen 26 mg/dL (9-23); Calcium 9.7 mg/dL (8.3-10.6); Calcium (Corrected) 9.7 mg/dL (8.5-10.1); Chloride 111 mMol/L (98-107); Creatinine (Component) 1.7 mg/dL (0.6-1.3); Glucose 120 mg/dL (74-106); Osmolality,Calculated 299 (275-295); Phosphorous 3.2 mg/dL (2.4-5.1); Potassium 3.9 mMol/L (3.4-5.1); Sodium 148 mMol/L (136-145); eGFR 41 See Note
== END | disposition home or self-care (01) ==
LOC: COPL 07:23
PROVIDERS: PCP Internal Medicine; Referring Provider Internal Medicine; Visit Provider Internal Medicine
DX: N17.9 Acute kidney failure, unspecified (principal)
CPT/HCPCS: 36415; 80069

== ENCOUNTER 2024-07-04 10:48 | Emergency (ER) | payer MEDICARE, MEDICAID, SELFPAY ==
[2024-07-04 10:49] VITALS: BMI 32.9
[2024-07-04 11:17] VITALS: BP 154/78; PULSE 75; RESP 18; TEMP 36.4; O2SAT 97
--- NOTE | 2024-07-04 11:28 | PD.EDRME ---
Rapid Medical Screening Exam E Arrival date/time: 07/04/24 10:48 This is a 78-year-old male that comes in with complaints of not feeling well. Per patient family member at the bedside patient has not been acting normal. Per family member patient has a history of dementia but is more confused than usual. Patient states that he has a fever and that he is cold. Patient also complains of weakness and abdominal pain. Patient has a history of, diabetes, hypothyroidism, high blood pressure I waite hyperlipidemia, depressionve greeted and performed a focused initial assessment of this patient. Initial appropriate labs ordered at this time. A comprehensive ED assessment and evaluation of the patient and analysis of all test and completion of medical decision making process will be conducted by additional ED provider. Chief Complaint: Nausea/Vomiting/Diarrhea Time Seen by Provider: 07/04/24 11:09 Vital signs: Vital Signs Temperature 97.6 F 07/04/24 11:17 Pulse Rate 75 07/04/24 11:17 Respiratory Rate 18 07/04/24 11:17 Blood Pressure 154/78 H 07/04/24 11:17 Pulse Oximetry (%) 97 07/04/24 11:17 Oxygen Delivery Method Room Air 07/04/24 11:17
--- NOTE | 2024-07-04 11:31 | XR_ITS ---
Examination: PA lateral chest 2 views Technique: Upright PA lateral chest 2 views Exam date and time: July 06, 2024 at 12:10 PM Comparison February 18, 2024. Indications: Coughing beginning 5 days ago, onset fever today. Findings: Mild enlargement cardiac contour. Mild vascular congestion. No lobar pneumonia. Moderate osteopenia Impression: Mild enlargement cardiac contour with mild vascular congestion. No lobar pneumonia
--- NOTE | 2024-07-04 11:33 | XR_ITS ---
Examination: CT brain head without contrast. 2-D sagittal coronal reconstructions Date and time of exam:July 06, 2024 1224 hrs. Comparison February 18, 2024 Indications: Confusion altered mental status today CTDI: vol (mGy):56.1 DLP: (mGycm):1005 Technique: Multiple CT axial sections of the brain have been obtained, 5 mm slice thickness. Contrast has not been administered. 2-D sagittal, coronal reconstructions have been obtained Low dose protocols were performed. One or more of the following dose reduction techniques were used; automated exposure control, adjustment of the mA and/or KV according to patient size, use of iterative reconstruction technique. Findings: No significant ventricular enlargement. Again noted old infarct left basal ganglia Intra-axial or extra-axial hemorrhage density is not seen. No mass effect or midline shift Basal cisterns are not remarkable. Fourth ventricle is midline. Cranial vault intact. Impression: Negative for acute hemorrhage, mass effect or midline shift As clinically warranted, brain MRI follow-up would best assess for acute ischemic change
[2024-07-04 12:19] LABS: Collection Type, Urine Pedi-Bag
[2024-07-04 12:28] LABS: Bilirubin,Urine Negative (Negative); Blood,Urine 1+ (Negative); Clarity,Urine Clear (Clear/Hazy); Color,Urine Yellow (Lt Yel-Yel); Culture Indicated,Urine Not Indicated; Glucose, Urine Negative (Negative); Hyaline Casts,Urine < 1 /hpf (0-1); Ketones,Urine Negative (Negative); Leukocyte Esterase,Urine Negative (Negative); Nitrite,Urine Negative (Negative); Protein,Urine 2+ (Neg - Trace); RBC,Urine 2 /hpf (0-3); Specific Gravity,Urine 1.023 (1.001-1.035); Squamous Epithelial Cell,Urine < 1 /hpf (0-5); Urobilinogen,Urine Negative mg/dL (0.0-1.0); WBC,Urine 1 /hpf (0-5)
[2024-07-04 12:39] LABS: Amphetamine/Methamp Scrn,U Negative (Negative); Barbiturate Screen,Urine Negative (Negative); Benzodiazepines Screen,Urine Negative (Negative); Benzoylecgonine Screen, Ur Negative (Negative); Fentanyl Screen,Urine Negative (Negative); Opiate Screen,Urine Negative (Negative); THC Screen,Urine Positive (Negative)
[2024-07-04 12:47] LABS: Basophils % (Auto) 1 % (0-2.5); Eosinophils % (Auto) 0 % (0-10); Hematocrit 43.2 % (41.0-53.0); Hemoglobin 15.1 g/dL (13.5-16.0); Immature Granulocytes % (Auto) 1 % (0-0); Immature Granulocytes Auto 0.05 Thou/mm3 (0.00-0.00); Lymphocytes # (Auto) 1.5 Thou/mm3 (1.0-4.8); Lymphocytes % (Auto) 18 % (10-50); Mean Corpuscular Hemoglobin 31.1 pg (25.0-35.0); Mean Corpuscular Volume 89 fL (80-100); Monocytes # (Auto) 0.9 Thou/mm3 (0.0-0.8); Monocytes % (Auto) 11 % (0-12); Neutrophils # (Auto) 5.6 Thou/mm3 (1.8-7.7); Neutrophils % (Auto) 70 % (37-80); Nucleated Red Blood Cell % 0 /100 WBC (0); Platelet Count 131 Thou/mm3 (140-440); RDW Standard Deviation 42.2 fL (35.1-43.9); Red Blood Count 4.85 Miln/mm3 (4.50-5.90); White Blood Count 8.1 Thou/mm3 (3.8-10.6)
--- NOTE | 2024-07-04 12:52 | PC.NURSE ---
pt was brought in by family for diarrhea and not eating or drinking for 5 days. family concerned because pt's kidneys are not functioning well and they are afraid if dehydrated then they will get worse. pt was able to ambulate to room without difficulty. Asked if pt was having pain and family stated that pt was just c/o not feeling well . pt placed on cc monitor. pt awaiting to speak with ER doctor at this time
[2024-07-04 12:55] VITALS: BP 178/79; PULSE 75; RESP 19; TEMP 36.6; O2SAT 98
--- NOTE | 2024-07-04 12:55 | EDNOTE_ITS ---
<Statement entered by Bozena Thomas MD - 07/05/24 15:16> As co-signing physician, I was present and available for consult prn. I concur with the plan and care as documented by the midlevel provider. ED General RME/HPI General Chief complaint: Nausea/Vomiting/Diarrhea Stated complaint: NOT EATING/DRINKING, DIARRHEA X 4-5 DAYS Time Seen by Provider: 07/04/24 11:09 Arrival date/time: 07/04/24 10:48 CC: Not feeling well HPI the family member at bedside states the patient has been complaining that he has not been feeling well and has had no appetite for the past 5 days. Family ember is concerned about his diabetes, denies chest pain fever chills nausea vomiting. RME / HPI RME / HPI narrative: 07/04/24 10:48 This is a 78-year-old male that comes in with complaints of not feeling well. Per patient family member at the bedside patient has not been acting normal. Per family member patient has a history of dementia but is more confused than usual. Patient states that he has a fever and that he is cold. Patient also complains of weakness and abdominal pain. Patient has a history of, diabetes, hypothyroidism, high blood pressure I waite hyperlipidemia, depressionve greeted and performed a focused initial assessment of this patient. Initial appropriate labs ordered at this time. A comprehensive ED assessment and evaluation of the patient and analysis of all test and completion of medical decision making process will be conducted by additional ED provider. Related Data Home Medications ?Medication ?Instructions ?Recorded ?Confirmed pregabalin 150 mg capsule (Lyrica) 150 mg PO BID 04/1809/02/23 ferrous sulfate 325 mg (65 mg 325 mg PO QDAY 06/28/21 09/02/23 iron) tablet losartan 50 mg-hydrochlorothiazide 1 tab PO QDAY 06/2809/02/23 12.5 mg tablet tamsulosin 0.4 mg capsule 0.4 mg PO DAILY 06/28/2102/14 atorvastatin 80 mg tablet 80 mg PO QPM 08/28/23 citalopram 20 mg tablet (Celexa) 20 mg PO QDAY 4 09/02/23 clopidogrel 75 mg tablet (Plavix) 75 mg PO QDAY 09/02/23 donepezil 23 mg tablet (Aricept) 23 mg PO QDAY 4 09/02/23 levothyroxine 25 mcg capsule 25 mcg PO QDAY 08/28/23 0 09/02/23 sitagliptin phosphate 100 mg 100 mg PO QDAY 08/28/23 0 09/02/23 tablet (Januvia) sumatriptan succinate 100 mg tablet 100 mg PO Q2H PRN Migraine Headache 08/28/23 09/02/23 zolpidem 10 mg tablet (Ambien) 10 mg PO HS 08/28/23 Previous Rx's ?Medication ?Instructions ?Recorded amoxicillin 875 mg-potassium 1 tab PO BID #10 tabs clavulanate 125 mg tablet Allergies Allergy/AdvReac Type Severity Reaction Status Date / Time morphine Allergy Severe Itching Verified 07/04/24 10:53 Past Medical History Past Medical History NEUROLOGIC: Positive Dementia and Migraine; Negative Neurological Disorders or Seizures CARDIAC: Positive Cardiac Disorders, Coronary Artery Disease, Hypercholesterolemia, Congestive Heart Failure and Hypertension RESPIRATORY: Negative Chronic Obstructive Pulmonary Disease (COPD), Asthma, Bronchitis or Pneumonia GASTROINTESTINAL: Positive Gastrointestinal Disorders and Obesity; Negative Hepatitis or Gastroesophageal Reflux Disease GENITOURINARY: Positive Genitourinary Disorders, Renal Disease and Benign Prostatic Hyperplasia MUSCULOSKELETAL: Positive Musculoskeletal Disorders, Arthritis and Gout ENT: Positive Cataracts ENDOCRINE: Positive Endocrine Disorders, Diabetes Mellitus Type 2 and Hypothyroidism; Negative Diabetes Mellitus Type 1 HEMATOLOGIC: Negative Blood Disorders, Anemia or Sickle Cell Disease PSYCHO/SOCIAL: Positive Depression and Anxiety OTHER HISTORY: Negative Autoimmune Disease, Blood Transfusions, Blood Transfusion Reaction, Anesthesia Reactions, MRSA, VRSA, Vancomycin-Resistant Enterococci, Chicken Pox, Clostridium Difficile or Cancer Family History FAMILY HISTORY: Positive Family Cardiac Disorders and Family Cancer; Negative Family Psychiatric Problems, Family Respiratory Disorders, Family Gastrointestinal Problems, Family Surgery or Family Anesthesia Reaction Surgical History SURGICAL: Positive Cardiac Surgery, Coronary Stent, Angiogram and Abdominal Surgery; Negative Cardiac Catheterization Social History SMOKING STATUS: Never smoker SUBSTANCE USE: does not use ED Exam Narrative Physical exam: [General: Obese not in any acute distress Head normocephalic HEENT: Within acceptable limits Neck is supple nontender Chest equal chest rise nontender to palpation Respiratory: Clear to auscultation no wheezes crackles or rubs CV: Rate rhythm is regular no murmurs rubs or clicks Abdomen is distended secondary to body habitus soft nontender no masses positive bowel sounds all 4 quadrants Back: No CVA tenderness no spinous process tenderness from cervical spine thoracic and lumbar spine Skin: Intact no petechiae rash induration ulceration or crepitus Extremities: Moving all extremities against resistance cap refill less than 2 seconds neurosensory intact. No lower extremity edema Neuro: Awake alert oriented x3 Glascow coma 15 no focal deficits] Course Quality Measures none Orders Category Date Time Status CT head/brain wo con Stat Exams 07/04/24 11:33 Completed XR chest 2V Stat Exams 07/04/24 11:31 Completed CBC Stat Lab 07/04/24 12:21 Completed Comprehensive Metabolic Panel Stat Lab 07/04/24 12:21 Completed Drug Screen,Urine Stat Lab 07/04/24 12:00 Completed Lipase Stat Lab 07/04/24 12:21 Completed Urinalysis, C/S if Indicated Stat Lab 07/04/24 12:00 Completed Sodium Chloride 0.9% 1000 ml [Ns] 1,000 ml Med 07/04/24 13:30 Discontinued IV 999 mls/hr Vital Signs Vital signs: Vital Signs Temperature 97.6 F 07/04/24 11:17 Pulse Rate 75 07/04/24 11:17 Respiratory Rate 18 07/04/24 11:17 Blood Pressure 154/78 H 07/04/24 11:17 Pulse Oximetry (%) 97 07/04/24 11:17 Oxygen Delivery Method Room Air 07/04/24 11:17 [facility] Patient data External records reviewed:: [facility] previous records Clinical information provided by:: patient, family and spouse Social determinants that could affect healthcare access:: none Patient has the following chronic illnesses:: Diabetes hypertension on blood thinner How is presenting disease/condition affected by chronic disease/condition?: u neffected by Evaluation data The following diagnostics were reviewed and interpreted by me:: lab results and radiology exam(s) Lab and/or radiology exams considered but not ordered:: CBC shows no acute leukocytosis anemia thrombocytopenia CMP Urine is positive for protein and blood but no signs of UTI. UDS is positive for marijuana. CT of the head is negative for any acute finding requires emergent or immediate intervention. Chest x-ray is negative as interpreted by me read by radiology. Interpretation Summary: There is no acute finding quires emergent or immediate intervention patient is mildly dehydrated we will give a liter of fluid and discharge the patient home. Medications Medications considered but not ordered:: None Medication administrations:: Medication Administration History Discontinued Medications Sodium Chloride (Ns) 1,000 mls @ 999 mls/hr IV .Q1H1M ONE Stop: 07/04/24 14:30 Last Infusion: 07/04/24 15:15 Dose: Infused Documented By: Admin: 07/04/24 13:55 Dose: 999 mls/hr Documented By: DO None Consultations Consultation(s) initiated? (list below): No Diagnosis Differential Diagnosis ED Complaint MDM: Dehydration NOHEMI electrolyte imbalance Most likely diagnosis given after review of the tests above:: Dehydration Admission Indicated Admission indicated?: not indicated Explain why admission is indicated or not indicated:: Stable for discharge Admission Request Was there a request for admission?: No Disposition Plan Disposition Plan: Discharge Discharge Attestation Discharge Attestation: The patient and all family members were given an opportunity to ask questions and understood the discharge instructions. Discharge instructions specifically effects, indications for sooner follow up or return to the emergency department, and the expected course of current diagnosis. Patient condition: Stable Medical Decision Making Differential Diagnosis Differential Diagnosis: Dehydration NOHEMI electrolyte imbalance Lab Data 07/04/24 12:21 07/04/24 12:21 Labs: Lab Results 07/04/24 07/04/24 Range/Units 12:00 12:21 WBC 8.1 (3.8-10.6) Thou/mm3 RBC 4.85 (4.50-5.90) Miln/mm3 Hgb 15.1 (13.5-16.0) g/dL Hct 43.2 (41.0-53.0) % MCV 89 (80-100) fL MCH 31.1 (25.0-35.0) pg MCHC 35.0 (31.0-37.0) g/dl RDW Std Deviation 42.2 (35.1-43.9) fL Plt Count 131 L (140-440) Thou/mm3 Neut % (Auto) 70 (37-80) % Lymph % (Auto) 18 (10-50) % [place] % (Auto) 11 (0-12) % Eos % (Auto) 0 (0-10) % Baso % (Auto) 1 (0-2.5) % Neut # (Auto) 5.6 (1.8-7.7) Thou/mm3 Lymph # (Auto) 1.5 (1.0-4.8) Thou/mm3 [place] # (Auto) 0.9 H (0.0-0.8) Thou/mm3 Eos # (Auto) 0.0 (0.0-0.5) Thou/mm3 Baso # (Auto) 0.0 (0.0-0.2) Thou/mm3 Immature Gran # (Auto) 0.05 H (0.00-0.00) Thou/mm3 Absolute Nucleated RBC 0.00 (0.00-0.00) Thou/mm3 Immature Gran % 1 H (0-0) % Nucleated RBC % 0 (0) /100 WBC Sodium 146 H (136-145) mMol/L Potassium 3.7 (3.4-5.1) mMol/L Chloride 113 H (98-107) mMol/L Carbon Dioxide 20.2 (20.0-31.0) mMol/L Anion Gap 13 (7-16) BUN 27 H (9-23) mg/dL Creatinine 1.9 H (0.6-1.3) mg/dL Estim Creat Clear Calc 32.9 L (>60) mL/min eGFR 36 L (60 - ) See Note BUN/Creatinine Ratio 14 (12-20) Ratio Glucose 147 H (74-106) mg/dL Calculated Osmolality 298 H (275-295) Calcium 10.2 (8.3-10.6) mg/dL Corrected Calcium 10.2 H (8.5-10.1) mg/dL Total Bilirubin 0.9 (0.3-1.2) mg/dL AST 26 (0-34) U/L ALT 27 (10-49) U/L Alkaline Phosphatase 169 H (46-116) U/L Total Protein 9.0 H (5.7-8.2) gm/dL Albumin 5.0 H (3.4-4.8) gm/dL Globulin 4.0 H (2.3-3.5) gm/dL Albumin/Globulin Ratio 1.3 (1.2-2.2) Lipase 36 (12-53) U/L Ur Collection Type Pedi-Bag Urine Color Yellow (Lt Yel-Yel) Urine Clarity Clear (Clear/Hazy) Urine pH 6.0 (5.0-7.0) Ur Specific [place] 1.023 (1.001-1.035) Urine Protein 2+ A (Neg - Trace) Urine Glucose (UA) Negative (Negative) Urine Ketones Negative (Negative) Urine Blood 1+ A (Negative) Urine Nitrite Negative (Negative) Urine Bilirubin Negative (Negative) Urine Urobilinogen (Auto) Negative (0.0-1.0) mg/dL Ur Leukocyte Esterase Negative (Negative) Urine RBC 2 (0-3) /hpf Urine WBC 1 (0-5) /hpf Ur Squamous Epith Cells < 1 (0-5) /hpf Urine Bacteria None (None) Hyaline Casts < 1 (0-1) /hpf Ur Culture Indicated? Not Indicated Urine Opiates Screen Negative (Negative) Urine Fentanyl Screen Negative (Negative) Ur Barbiturates Screen Negative (Negative) U Amphetamin/Meth Scrn Negative (Negative) U Benzodiazepines Scrn Negative (Negative) U Cocaine Metab Screen Negative (Negative) U Marijuana (THC) Screen Positive A (Negative) Discharge Plan Plan Patient Disposition: HOME (Self Care) Patient condition on transfer: Stable Prescriptions/Referrals Prescriptions/Med Rec: No Action pregabalin [Lyrica] 150 mg capsule 150 mg PO BID tamsulosin 0.4 mg capsule 0.4 mg PO DAILY Patient Comments: TAKE 1 CAPSULE BY MOUTH EVERY DAY 1/2 HOUR FOLLOWING THE SAME MEAL EACH DAY Rx Instructions: 30 min after same meal each day ferrous sulfate 325 mg (65 mg iron) tablet 325 mg PO QDAY Patient Comments: TAKE 1 TABLET BY MOUTH EVERY DAY losartan-hydrochlorothiazide 50-12.5 mg tablet 1 tab PO QDAY atorvastatin 80 mg Tablet 80 mg PO QPM sumatriptan succinate 100 mg Tablet 100 mg PO Q2H PRN (Reason: Migraine Headache) Rx Instructions: do not exceed 2 doses per 24 hrs clopidogrel [Plavix] 75 mg Tablet 75 mg PO QDAY citalopram [Celexa] 20 mg Tablet 20 mg PO QDAY zolpidem [Ambien] 10 mg Tablet 10 mg PO HS Januvia 100 mg Tablet 100 mg PO QDAY levothyroxine 25 mcg Capsule 25 mcg PO QDAY donepezil [Aricept] 23 mg Tablet 23 mg PO QDAY amoxicillin-pot clavulanate 875-125 mg tablet 1 tab PO BID Qty: 10 0RF Referrals: Marta Bang [Primary Care Provider] - In 1 week Problem List Clinical Impression: Dehydration Patient/Caregiver Discharge Instructions Education Materials: ED Dehydration (Adult) Additional Instructions: Follow-up with your primary care provider encourage plenty of fluids. Print Language: Algerian Stand Alone Forms: Tess Award Info., Work/School Release, Patient Portal Info Letter PA/[employer]UCK [employer] MECH[employer]IC Supervising Physician PA/TRUCK [employer]ENCH MECHANIC Supervising Physician: Adrian March ENP
[2024-07-04 12:58] LABS: Alanine Aminotransferase 27 U/L (10-49); Albumin/Globulin Ratio 1.3 (1.2-2.2); Alkaline Phosphatase 169 U/L (46-116); Anion Gap 13 (7-16); Aspartate Amino Transferase 26 U/L (0-34); BUN/Creatinine Ratio 14 Ratio (12-20); Bilirubin,Total 0.9 mg/dL (0.3-1.2); Blood Urea Nitrogen 27 mg/dL (9-23); Calcium 10.2 mg/dL (8.3-10.6); Calcium (Corrected) 10.2 mg/dL (8.5-10.1); Carbon Dioxide 20.2 mMol/L (20.0-31.0); Chloride 113 mMol/L (98-107); Creatinine (Component) 1.9 mg/dL (0.6-1.3); Estimated Creatinine Clearance 32.9 mL/min (>60); Glucose 147 mg/dL (74-106); Lipase 36 U/L (12-53); Osmolality,Calculated 298 (275-295); Potassium 3.7 mMol/L (3.4-5.1); Sodium 146 mMol/L (136-145); eGFR 36 See Note
[2024-07-04] MEDS: SODIUM CHLORIDE 0.9% 1000 ML 1,000 ML 999 ML IV (13:55)
[2024-07-04 14:33] VITALS: BP 165/78; PULSE 71; RESP 18; TEMP 36.6; O2SAT 98
[2024-07-04 14:56] VITALS: BP 177/82; PULSE 82; RESP 19; TEMP 36.5; O2SAT 99
== END 2024-07-04 15:23 | disposition home or self-care (01) ==
PROVIDERS: Nurse Practitioner Family; Emergency Provider Emergency Medicine; PCP Internal Medicine
DX: E86.0 Dehydration (principal); E11.9 Type 2 diabetes mellitus without complications; E03.9 Hypothyroidism, unspecified; E78.00 Pure hypercholesterolemia, unspecified; I25.10 Atherosclerotic heart disease of native coronary artery without angina pectoris; I11.0 Hypertensive heart disease with heart failure; I50.9 Heart failure, unspecified; M10.9 Gout, unspecified; F03.93 Unspecified dementia, unspecified severity, with mood disturbance; F32.A Depression, unspecified; F03.94 Unspecified dementia, unspecified severity, with anxiety; E66.9 Obesity, unspecified; Z68.33 Body mass index [BMI] 33.0-33.9, adult; Z95.5 Presence of coronary angioplasty implant and graft
CPT/HCPCS: 36415; 70450; 71046; 80053; 80307; 81001; 83690; 85025; 96360; 99284; J7030

== ENCOUNTER → 2024-07-28 | Outpatient (CLI) | payer MEDICARE, MEDICAID, SELFPAY ==
[2024-07-28 08:44] LABS: Basophils % (Auto) 1 % (0-2.5); Eosinophils # (Auto) 0.1 Thou/mm3 (0.0-0.5); Eosinophils % (Auto) 2 % (0-10); Hemoglobin 13.4 g/dL (13.5-16.0); Immature Granulocytes % (Auto) 0 % (0-0); Immature Granulocytes Auto 0.01 Thou/mm3 (0.00-0.00); Lymphocytes # (Auto) 1.6 Thou/mm3 (1.0-4.8); Lymphocytes % (Auto) 24 % (10-50); Mean Corpuscular HGB Conc 36.2 g/dl (31.0-37.0); Mean Corpuscular Hemoglobin 31.7 pg (25.0-35.0); Mean Corpuscular Volume 88 fL (80-100); Monocytes # (Auto) 0.6 Thou/mm3 (0.0-0.8); Monocytes % (Auto) 9 % (0-12); Neutrophils # (Auto) 4.3 Thou/mm3 (1.8-7.7); Neutrophils % (Auto) 65 % (37-80); Nucleated Red Blood Cell % 0 /100 WBC (0); Parathyroid Hormone Intact 65.9 pg/ml (18.5-88.0); Platelet Count 131 Thou/mm3 (140-440); RDW Standard Deviation 42.3 fL (35.1-43.9); Red Blood Count 4.23 Miln/mm3 (4.50-5.90); White Blood Count 6.7 Thou/mm3 (3.8-10.6)
[2024-07-28 08:51] LABS: Vitamin D 25 Hydroxy Total 53.4 ng/mL (7.3-40.2)
[2024-07-28 08:55] LABS: Glucose Estimated Average 120 mg/dL (80-131); Hemoglobin A1C 5.8 % Hgb (4.8-6.0)
[2024-07-28 09:02] LABS: Alanine Aminotransferase 30 U/L (10-49); Albumin, Serum 4.3 gm/dL (3.4-4.8); Albumin/Globulin Ratio 1.6 (1.2-2.2); Alkaline Phosphatase 125 U/L (46-116); Anion Gap 8 (7-16); Aspartate Amino Transferase 22 U/L (0-34); BUN/Creatinine Ratio 18 Ratio (12-20); Bilirubin,Total 0.6 mg/dL (0.3-1.2); Blood Urea Nitrogen 28 mg/dL (9-23); Calcium 9.3 mg/dL (8.3-10.6); Calcium (Corrected) 9.3 mg/dL (8.5-10.1); Carbon Dioxide 26.8 mMol/L (20.0-31.0); Cardiac Risk Estimate 2.6 RATIO (4.0-6.7); Chloride 109 mMol/L (98-107); Cholesterol 83 mg/dL (132-200); Creatinine (Component) 1.6 mg/dL (0.6-1.3); Globulin 2.7 gm/dL (2.3-3.5); Glucose 108 mg/dL (74-106); HDL Cholesterol 32 mg/dL (40-60); LDL Cholesterol,Calculated 38 mg/dL (0-130); Osmolality,Calculated 293 (275-295); Potassium 4.8 mMol/L (3.4-5.1); Sodium 144 mMol/L (136-145); Thyroid Stimulating Hormone 4.48 uIU/mL (0.55-4.78); Triglycerides 65 mg/dL (30-150); eGFR 44 See Note
[2024-07-28 09:27] LABS: Collection Type, Urine Clean Catch
[2024-07-28 10:02] LABS: Bilirubin,Urine Negative (Negative); Blood,Urine Negative (Negative); Clarity,Urine Clear (Clear/Hazy); Color,Urine Yellow (Lt Yel-Yel); Glucose, Urine Negative (Negative); Ketones,Urine Negative (Negative); Leukocyte Esterase,Urine Negative (Negative); Nitrite,Urine Negative (Negative); PH,Urine 6.5 (5.0-7.0); Protein,Urine Trace (Neg - Trace); RBC,Urine 2 /hpf (0-3); Specific Gravity,Urine 1.019 (1.001-1.035); Squamous Epithelial Cell,Urine < 1 /hpf (0-5); Urobilinogen,Urine Negative mg/dL (0.0-1.0); WBC,Urine 1 /hpf (0-5)
[2024-07-28 10:31] LABS: Creatinine MALB Rnd Ur 116 mg/dL (30-125); Microalbumin Creat Ratio 51 mg/gCrea (<30); Microalbumin, Random Urine 59 mg/L (0-300)
== END | disposition home or self-care (01) ==
LOC: COPL 07:37
PROVIDERS: PCP Internal Medicine; Referring Provider Internal Medicine; Visit Provider Internal Medicine
DX: I12.9 Hypertensive chronic kidney disease with stage 1 through stage 4 chronic kidney disease, or unspecified chronic kidney disease (principal); E11.22 Type 2 diabetes mellitus with diabetic chronic kidney disease; N18.30 Chronic kidney disease, stage 3 unspecified; E78.5 Hyperlipidemia, unspecified; E55.9 Vitamin D deficiency, unspecified
CPT/HCPCS: 36415; 80053; 80061; 81001; 82043; 82306; 82570; 83036; 83970; 84443; 85025

== ENCOUNTER → 2024-09-30 | Outpatient (CLI) | payer MEDICARE, MEDICAID, SELFPAY ==
[2024-09-30 10:47] LABS: Albumin, Serum 4.4 gm/dL (3.4-4.8); Anion Gap 12 (7-16); BUN/Creatinine Ratio 19 Ratio (12-20); Blood Urea Nitrogen 33 mg/dL (9-23); Calcium 9.7 mg/dL (8.3-10.6); Calcium (Corrected) 9.7 mg/dL (8.5-10.1); Carbon Dioxide 25.6 mMol/L (20.0-31.0); Chloride 104 mMol/L (98-107); Creatinine (Component) 1.7 mg/dL (0.6-1.3); Glucose 138 mg/dL (74-106); Osmolality,Calculated 292 (275-295); Phosphorous 3.6 mg/dL (2.4-5.1); Potassium 4.1 mMol/L (3.4-5.1); Sodium 142 mMol/L (136-145); eGFR 41 See Note
== END | disposition home or self-care (01) ==
LOC: COPL 10:03
PROVIDERS: PCP Nurse Practitioner Family; Referring Provider Internal Medicine; Visit Provider Internal Medicine
DX: I10 Essential (primary) hypertension (principal)
CPT/HCPCS: 36415; 80069

== ENCOUNTER 2024-10-17 11:12 | Emergency (ER) | payer MEDICARE, MEDICAID, SELFPAY ==
[2024-10-17 11:13] VITALS: BMI 29.5
[2024-10-17 11:38] VITALS: BP 164/82; PULSE 107; RESP 19; TEMP 36.3; O2SAT 100
--- NOTE | 2024-10-17 11:48 | PD.EDANX ---
ED Anxiety RME/HPI General Chief Complaint: Anxiety Stated Complaint: TROUBLE BREATHING BECAUSE OF HIS ANXIETY X3DAYS Time Seen by Provider: 10/17/24 11:34 Arrival date/time: 10/17/24 11:12 Limitations: no limitations RME / HPI RME / HPI narrative: DR. URIBE MAIN ED EVALUATION: 79-year-old male with past medical history of kidney disease, anxiety, hypertension, dementia, and prior heart fluid removal surgery 12 years ago presents to the Emergency Department with complaints of anxiety and increased urination since at 11 PM. History provided by due to patient?s dementia. She reports associated anxiety and insomnia. Patient denies chest pain and abdominal pain. No recent travel. He uses THC gummies for insomnia. No tobacco, alcohol, or drug use. Allergic to morphine. Related Data Home Medications ?Medication ?Instructions ?Recorded ?Confirmed pregabalin 150 mg capsule (Lyrica) 150 mg PO BID 04/18/21 09/02/23 ferrous sulfate 325 mg (65 mg 325 mg PO QDAY 06/28/21 09/02/23 iron) tablet losartan 50 mg-hydrochlorothiazide 1 tab PO QDAY 06/28/21 09/02/23 12.5 mg tablet tamsulosin 0.4 mg capsule 0.4 mg PO DAILY 06/28/21 09/02/23 atorvastatin 80 mg tablet 80 mg PO QPM 08/28/23 09/02/23 citalopram 20 mg tablet (Celexa) 20 mg PO QDAY 08/28/23 09/02/23 clopidogrel 75 mg tablet (Plavix) 75 mg PO QDAY 08/28/23 09/02/23 donepezil 23 mg tablet (Aricept) 23 mg PO QDAY 08/28/23 09/02/23 levothyroxine 25 mcg capsule 25 mcg PO QDAY 08/28/23 09/02/23 sitagliptin phosphate 100 mg 100 mg PO QDAY 08/28/23 09/02/23 tablet (Januvia) sumatriptan succinate 100 mg tablet 100 mg PO Q2H PRN Migraine Headache 08/28/23 09/02/23 zolpidem 10 mg tablet (Ambien) 10 mg PO HS 08/28/23 09/02/23 Previous Rx's ?Medication ?Instructions ?Recorded amoxicillin 875 mg-potassium 1 tab PO BID #10 tabs 01/17/24 clavulanate 125 mg tablet Allergies Allergy/AdvReac Type Severity Reaction Status Date / Time morphine Allergy Severe Itching Verified 10/17/24 11:15 Review of Systems Review of Systems Systems Reviewed: All systems reviewed, normal except as documented Past Medical History Past Medical History NEUROLOGIC: Positive Dementia and Migraine CARDIAC: Positive Cardiac Disorders, Coronary Artery Disease, Hypercholesterolemia, Congestive Heart Failure and Hypertension GASTROINTESTINAL: Positive Gastrointestinal Disorders and Obesity GENITOURINARY: Positive Genitourinary Disorders, Renal Disease and Benign Prostatic Hyperplasia MUSCULOSKELETAL: Positive Musculoskeletal Disorders, Arthritis and Gout ENT: Positive Cataracts ENDOCRINE: Positive Endocrine Disorders, Diabetes Mellitus Type 2 and Hypothyroidism PSYCHO/SOCIAL: Positive Depression and Anxiety Family History FAMILY HISTORY: Positive Family Cardiac Disorders and Family Cancer Surgical History SURGICAL: Positive Cardiac Surgery, Coronary Stent, Angiogram and Abdominal Surgery Social History SMOKING STATUS: Never smoker SUBSTANCE USE: does not use ALCOHOL: Never ED Exam General Limitations: Present no limitations General appearance: Present alert and in no apparent distress Head Head exam: Present atraumatic, normocephalic and normal inspection Eye Eye exam: Present normal appearance, PERRL and EOMI ENT ENT exam: Present normal exam, normal oropharynx and mucous membranes moist Neck Neck exam: Present normal inspection, full ROM and trachea midline Chest Chest inspection: Present normal inspection and symmetric chest wall rise Respiratory Respiratory exam: Present normal lung sounds bilaterally Cardiovascular Cardiovascular exam: Present regular rate, normal rhythm and normal heart sounds Abdominal Exam Abdominal exam: Present soft and normal bowel sounds Extremities Exam Extremities exam: Present normal inspection and full ROM Back Exam Back exam: Present normal inspection and full ROM Neurological Exam Neurological exam: Present alert, oriented X3 and CN II-XII intact Psychiatric Psychiatric exam: Present normal affect and normal mood Skin Skin exam: Present warm, dry, intact and normal color Course Quality Measures none Vital Signs Vital signs: Vital Signs Temperature 97.4 F 10/17/24 11:38 Pulse Rate 107 H 10/17/24 11:38 Respiratory Rate 19 10/17/24 11:38 Blood Pressure 164/82 H 10/17/24 11:38 Pulse Oximetry (%) 100 10/17/24 11:38 Oxygen Delivery Method Room Air 10/17/24 11:38 Anxiety MDM Narrative MDM Narrative: Ashely Lindsey am scribing for and in the presence of Dr. Uribe. Patient is a 79-year-old male with medical history notable for dementia, heart failure, chronic kidney disease, hypothyroidism, hypertension, diabetes send emergency department with concerns for anxiety, and epigastric pain. Vital signs and exam as listed. Concern for ACS arrhythmia electrolyte abnormality viral syndrome hyperammonemia, urinary tract infection among others. Ordered labs, EKG, chest x-ray right upper quadrant ultrasound. Offered medication for symptom relief Labs without any significant acute hematologic abnormality. Patient with acute worsening of his chronic kidney disease. EKG without evidence of ischemia or arrhythmia. Troponin not elevated. Ammonia within normal limits. No significant acute electrolyte abnormalities. Patient with a transaminitis AST 107, ALT 180, alk phos 517. Ordered right upper quadrant ultrasound. Was read as having a thickened gallbladder wall however patient had a cholecystectomy many years ago, and this was confirmed on imaging performed previously at our facility that demonstrated on CT and ultrasound that he has an absent gallbladder. Patient has a history of heart failure this may be secondary to acute worsening of his cardiac disease however BNP is 63. Chest x-ray read as unremarkable and patient is on room air. Spoke at length with patient's again, and she states that the patient has been urinating in the house in various places, and not just going to the bathroom frequently. Even though previously she had mentioned that the patient's mentation is at his baseline, rather that this could be a sign of confusion. I offered a CT scan of the brain. She did state that she does not want her to be admitted to the hospital unless there is an abnormality on patient's CT of his brain. Patient's symptoms have been present for the last 3 weeks. He has no complaints. Patient seen ambulating in the emergency department multiple times as well as tolerating oral intake. Patient is not septic. Patient data External records reviewed:: [facility] previous records Clinical information provided by:: patient and spouse Social determinants that could affect healthcare access:: none Patient has the following chronic illnesses:: Kidney disease, anxiety, hypertension, dementia, and prior heart fluid removal surgery 12 years ago. He uses THC gummies for insomnia. No tobacco, alcohol, or drug use. Allergic to morphine. How is presenting disease/condition affected by chronic disease/condition?: exacerbated by Evaluation data The following diagnostics were reviewed and interpreted by me:: lab results, radiology exam(s) and EKG tracing(s) Lab and/or radiology exams considered but not ordered:: none Interpretation Summary: My interpretation: EKG performed at 1200 hours, sinus rhythm, rate 97, normal intervals, non specific ST-T wave changes, no cardiac alert Procedure(s): US abdomen limited Accession Number(s): [id number] cc: Angela Hutton; Lam Meraz MD; Demetra Uribe MD~ Examination: Abdomen sonogram, Limited Date and time of exam: October 17, 2024, 1418 hrs. Indications: Right upper abdominal pain today Technique: Real-time rendon scale transabdominal sonographic images of the upper abdomen obtained. Findings: Gallbladder sludge Negative for gallstones. Gallbladder wall is thickened 0.5 cm Common bile duct 0.4 cm Pancreatic head 3.0 cm. Liver 15.3 cm irregular contour fatty infiltration. Normal hepatopedal portal venous flow. Patent IVC Impression: Gallbladder wall is thickened, consider HIDA scan or MRCP follow-up to confirm cholecystitis Dictated By: Lam Meraz MD Procedure(s): XR chest 2V Accession Number(s): [id number] cc: Angela Hutton; Lam Meraz MD; Demetra Uribe MD~ Examination: PA lateral chest 2 views Technique: Upright PA lateral chest 2 views Date and time: October 17, 2024, 1152 hrs. Indications: Chest pain today. Findings: Mild prominence left ventricle. No pneumonia or pulmonary edema. The osseous structures are intact. Impression: No pneumonia or pulmonary edema. Dictated By: Lam Meraz MD Procedure(s): CT head/brain wo con Accession Number(s): [id number] cc: Angela Hutton; Lam Meraz MD; Demetra Uribe MD~ Examination: CT brain head without contrast. 2-D sagittal coronal reconstructions Date and time of exam:October 17, 2024 1646 hours INDICATIONS: Headaches and dizziness beginning 5 days ago COMPARISON: July 04, 2024 CTDI: vol (mGy):55.9 DLP: (mGycm):1187 Technique: Multiple CT axial sections of the brain have been obtained, 5 mm slice thickness. Contrast has not been administered. 2-D sagittal, coronal reconstructions have been obtained Low dose protocols were performed. One or more of the following dose reduction techniques were used; automated exposure control, adjustment of the mA and/or KV according to patient size, use of iterative reconstruction technique. Findings: No significant ventricular enlargement. 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 No mass effect or midline shift Basal cisterns are not remarkable. Fourth ventricle is midline. Cranial vault intact. Impression: Negative for acute hemorrhage, mass effect or midline shift As clinically warranted, brain MRI follow-up would best assess for acute ischemic change Dictated By: Lam Meraz MD Medications / Prescriptions Medications or Prescriptions considered but not ordered:: none Medication administrations:: see above if any Consultations Consultation(s) initiated? (list below): No Diagnosis Differential diagnosis anxiety: other (UTI, diabetic ketoacidosis, and anxiety-related polyuria) Admission Indicated Admission indicated?: not indicated Admission Request Was there a request for admission?: No Disposition Plan Disposition Plan: Discharge Discharge Attestation Discharge Attestation: The patient and all family members were given an opportunity to ask questions and understood the discharge instructions. Discharge instructions specifically effects, indications for sooner follow up or return to the emergency department, and the expected course of current diagnosis. Patient condition: Stable Discharge Plan Prescriptions/Referrals Prescriptions/Med Rec: No Action pregabalin [Lyrica] 150 mg capsule 150 mg PO BID tamsulosin 0.4 mg capsule 0.4 mg PO DAILY Patient Comments: TAKE 1 CAPSULE BY MOUTH EVERY DAY 1/2 HOUR FOLLOWING THE SAME MEAL EACH DAY Rx Instructions: 30 min after same meal each day ferrous sulfate 325 mg (65 mg iron) tablet 325 mg PO QDAY Patient Comments: TAKE 1 TABLET BY MOUTH EVERY DAY losartan-hydrochlorothiazide 50-12.5 mg tablet 1 tab PO QDAY atorvastatin 80 mg Tablet 80 mg PO QPM sumatriptan succinate 100 mg Tablet 100 mg PO Q2H PRN (Reason: Migraine Headache) Rx Instructions: do not exceed 2 doses per 24 hrs clopidogrel [Plavix] 75 mg Tablet 75 mg PO QDAY citalopram [Celexa] 20 mg Tablet 20 mg PO QDAY zolpidem [Ambien] 10 mg Tablet 10 mg PO HS Januvia 100 mg Tablet 100 mg PO QDAY levothyroxine 25 mcg Capsule 25 mcg PO QDAY donepezil [Aricept] 23 mg Tablet 23 mg PO QDAY amoxicillin-pot clavulanate 875-125 mg tablet 1 tab PO BID Qty: 10 0RF Referrals: Angela Hutton FNP [Primary Care Provider] - In 1 week Patient/Caregiver Discharge Instructions Print Language: Macedonian
--- NOTE | 2024-10-17 11:50 | EKG_ITS ---
[facility] Test Date: 2024-10-17 Pat Name: AMITA COFFMAN Department: Room: - Gender: Male R&D Lab Technician: : 1945 Requested By: Demetra Rubin Order Number: [id number] Reading MD: Demetra Rubin Measurements Intervals [place] Rate: 97 P: 36 OH: 193 QRS: 53 QRSD: 93 T: 24 QT: 347 QTc: 442 Interpretive Statements SINUS RHYTHM POSSIBLE LEFT ATRIAL ENLARGEMENT [-0.1mV P-WAVE IN V1/V2] ANTERIOR MYOCARDIAL INFARCTION , PROBABLY OLD [40+ ms Q WAVE AND/OR ST/T ABNORMALITY IN V3/V4] Compared to ECG 04/15/2024 21:55:42 Myocardial infarct finding now present First degree AV block no longer present /store/S0/[id number].pdf
[2024-10-17 12:27] LABS: Collection Type, Urine Clean Catch
[2024-10-17 12:31] LABS: Basophils # (Auto) 0.1 Thou/mm3 (0.0-0.2); Basophils % (Auto) 1 % (0-2.5); Eosinophils # (Auto) 0.1 Thou/mm3 (0.0-0.5); Eosinophils % (Auto) 1 % (0-10); Hematocrit 39.8 % (41.0-53.0); Hemoglobin 13.8 g/dL (13.5-16.0); Immature Granulocytes Auto 0.08 Thou/mm3 (0.00-0.00); Lymphocytes # (Auto) 2.2 Thou/mm3 (1.0-4.8); Lymphocytes % (Auto) 18 % (10-50); Mean Corpuscular HGB Conc 34.7 g/dl (31.0-37.0); Mean Corpuscular Hemoglobin 31.3 pg (25.0-35.0); Mean Corpuscular Volume 90 fL (80-100); Monocytes # (Auto) 1.0 Thou/mm3 (0.0-0.8); Monocytes % (Auto) 8 % (0-12); Neutrophils # (Auto) 9.2 Thou/mm3 (1.8-7.7); Neutrophils % (Auto) 73 % (37-80); Nucleated Red Blood Cell # 0.00 Thou/mm3 (0.00-0.00); Nucleated Red Blood Cell % 0 /100 WBC (0); Platelet Count 195 Thou/mm3 (140-440); RDW Standard Deviation 46.5 fL (35.1-43.9); Red Blood Count 4.41 Miln/mm3 (4.50-5.90); White Blood Count 12.6 Thou/mm3 (3.8-10.6)
[2024-10-17 12:41] LABS: Bilirubin,Urine Negative (Negative); Blood,Urine 1+ (Negative); Clarity,Urine Clear (Clear/Hazy); Color,Urine Yellow (Lt Yel-Yel); Culture Indicated,Urine Not Indicated; Glucose, Urine Negative (Negative); Ketones,Urine Negative (Negative); Leukocyte Esterase,Urine Negative (Negative); Nitrite,Urine Negative (Negative); PH,Urine 5.5 (5.0-7.0); Protein,Urine 2+ (Neg - Trace); RBC,Urine 1 /hpf (0-3); Specific Gravity,Urine 1.021 (1.001-1.035); Squamous Epithelial Cell,Urine < 1 /hpf (0-5); Urobilinogen,Urine Negative mg/dL (0.0-1.0); WBC,Urine 3 /hpf (0-5)
[2024-10-17 12:49] VITALS: BP 142/70; PULSE 96; RESP 19; TEMP 36.4; O2SAT 97
[2024-10-17 12:50] LABS: Sperm,Urine Present
[2024-10-17 12:50] LABS: Alanine Aminotransferase 180 U/L (10-49); Albumin, Serum 4.5 gm/dL (3.4-4.8); Albumin/Globulin Ratio 1.2 (1.2-2.2); Alkaline Phosphatase 517 U/L (46-116); Anion Gap 14 (7-16); Aspartate Amino Transferase 107 U/L (0-34); B-Type Natriuretic Peptide 77 pg/mL (0-100); BUN/Creatinine Ratio 17 Ratio (12-20); Bilirubin,Total 1.0 mg/dL (0.3-1.2); Blood Urea Nitrogen 33 mg/dL (9-23); Calcium 10.4 mg/dL (8.3-10.6); Calcium (Corrected) 10.4 mg/dL (8.5-10.1); Carbon Dioxide 23.2 mMol/L (20.0-31.0); Chloride 103 mMol/L (98-107); Creatinine (Component) 1.9 mg/dL (0.6-1.3); Estimated Creatinine Clearance 30.7 mL/min (>60); Globulin 3.9 gm/dL (2.3-3.5); Glucose 215 mg/dL (74-106); Osmolality,Calculated 292 (275-295); Potassium 4.5 mMol/L (3.4-5.1); Sodium 140 mMol/L (136-145); Total Protein 8.4 gm/dL (5.7-8.2); Troponin I < 0.020 ng/mL (0.0-0.045); eGFR 36 See Note
--- NOTE | 2024-10-17 13:59 | XR_ITS ---
Examination: Abdomen sonogram, Limited Date and time of exam: October 17, 2024, 1418 hrs. Indications: Right upper abdominal pain today Technique: Real-time rendon scale transabdominal sonographic images of the upper abdomen obtained. Findings: Gallbladder sludge Negative for gallstones. Gallbladder wall is thickened 0.5 cm Common bile duct 0.4 cm Pancreatic head 3.0 cm. Liver 15.3 cm irregular contour fatty infiltration. Normal hepatopedal portal venous flow. Patent IVC Impression: Gallbladder wall is thickened, consider HIDA scan or MRCP follow-up to confirm cholecystitis
[2024-10-17 14:38] LABS: Ammonia 24 uMol/L (11-32); B-Type Natriuretic Peptide 63 pg/mL (0-100)
[2024-10-17 15:54] VITALS: BP 147/74; PULSE 92; RESP 16; TEMP 36.6; O2SAT 96
[2024-10-17 16:35] LABS: Lactate (Lactic Acid) 1.7 mMol/L (0.4-2.0)
--- NOTE | 2024-10-17 16:36 | XR_ITS ---
Examination: CT brain head without contrast. 2-D sagittal coronal reconstructions Date and time of exam:October 17, 2024 1646 hours INDICATIONS: Headaches and dizziness beginning 5 days ago COMPARISON: July 04, 2024 CTDI: vol (mGy):55.9 DLP: (mGycm):1187 Technique: Multiple CT axial sections of the brain have been obtained, 5 mm slice thickness. Contrast has not been administered. 2-D sagittal, coronal reconstructions have been obtained Low dose protocols were performed. One or more of the following dose reduction techniques were used; automated exposure control, adjustment of the mA and/or KV according to patient size, use of iterative reconstruction technique. Findings: No significant ventricular enlargement. 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 No mass effect or midline shift Basal cisterns are not remarkable. Fourth ventricle is midline. Cranial vault intact. Impression: Negative for acute hemorrhage, mass effect or midline shift As clinically warranted, brain MRI follow-up would best assess for acute ischemic change
== END 2024-10-17 18:10 | disposition left against medical advice (07) ==
PROVIDERS: Emergency Provider Emergency Medicine; PCP Nurse Practitioner Family
DX: K82.8 Other specified diseases of gallbladder (principal); R06.00 Dyspnea, unspecified; R42 Dizziness and giddiness; R51.9 Headache, unspecified; R07.9 Chest pain, unspecified; I13.0 Hypertensive heart and chronic kidney disease with heart failure and stage 1 through stage 4 chronic kidney disease, or unspecified chronic kidney disease; E11.22 Type 2 diabetes mellitus with diabetic chronic kidney disease; N18.9 Chronic kidney disease, unspecified; I50.9 Heart failure, unspecified; Z53.29 Procedure and treatment not carried out because of patient's decision for other reasons
CPT/HCPCS: 36415; 70450; 71046; 76705; 80053; 81001; 82140; 83605; 83880; 84484; 85025; 93005; 99283; A9270

== ENCOUNTER 2024-10-18 17:44 | Emergency (ER) | payer MEDICARE, MEDICAID, SELFPAY ==
[2024-10-18 17:46] VITALS: BMI 29.5
[2024-10-18 17:56] VITALS: BP 165/82; PULSE 89; RESP 19; TEMP 36.8; O2SAT 99
--- NOTE | 2024-10-18 19:48 | PC.NURSE ---
CALLED PATIENT IN THE LOBBY AND OUTSIDE, NO ANSWER RECEIVED FROM PATIENT.
--- NOTE | 2024-10-18 20:05 | PC.NURSE ---
CALLED PATIENT IN THE LOBBY AND OUTSIDE, NO ANSWER RECEIVED.
--- NOTE | 2024-10-18 20:17 | PC.NURSE ---
CALLED PATIENT IN THE LOBBY AND OUTSIDE, NO ANSWER RECIEVED.
== END 2024-10-18 20:17 | disposition left against medical advice (07) ==
LOC: SERX 18:18
PROVIDERS: Emergency Provider Emergency Medicine
DX: Z53.21 Procedure and treatment not carried out due to patient leaving prior to being seen by health care provider (principal)
CPT/HCPCS: 99282

== ENCOUNTER 2024-10-19 09:09 | Emergency (ER) | payer MEDICARE, MEDICAID, SELFPAY ==
[2024-10-19 09:10] VITALS: BMI 30.4
[2024-10-19 09:25] VITALS: BP 153/77; PULSE 100; RESP 18; TEMP 36.9; O2SAT 97
--- NOTE | 2024-10-19 09:42 | EKG_ITS ---
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
[2024-10-19 10:05] VITALS: BP 159/76; PULSE 76; RESP 19; TEMP 37.1; O2SAT 100
--- NOTE | 2024-10-19 10:41 | PD.EDADULT ---
ED General RME/HPI General Chief complaint: General Adult/Misc Complain Stated complaint: SENT BY DR. MONTANA FOR HIGH LIVER ENZYMES Arrival date/time: 10/19/24 09:09 RME / HPI RME / HPI narrative: 79 year old male patient with history of dementia, heart failure, CKD, hypertension, diabetes, hypothyroidism presents to the ED referred by PCP Dr. Montana for evaluation of abnormal lab results. reports the patient was evaluated here 2 days ago (10/17) for anxiety and had labs performed. Reportedly the anxiety has not improved and followed up with PCP Dr. Montana. States she reviewed the labs and advised he come in for evaluation of elevated liver enzymes. denied the patient complaining of any abdominal pain. However, does report black stools, anorexia x 3 weeks, and vomiting this morning. While in the ED patient has no complaints. Related Data Home Medications ?Medication ?Instructions ?Recorded ?Confirmed pregabalin 150 mg capsule (Lyrica) 150 mg PO BID 04/18/21 09/02/23 ferrous sulfate 325 mg (65 mg 325 mg PO QDAY 06/28/21 09/02/23 iron) tablet losartan 50 mg-hydrochlorothiazide 1 tab PO QDAY 06/28/21 09/02/23 12.5 mg tablet tamsulosin 0.4 mg capsule 0.4 mg PO DAILY 06/28/21 09/02/23 atorvastatin 80 mg tablet 80 mg PO QPM 08/28/23 09/02/23 citalopram 20 mg tablet (Celexa) 20 mg PO QDAY 08/28/23 09/02/23 clopidogrel 75 mg tablet (Plavix) 75 mg PO QDAY 08/28/23 09/02/23 donepezil 23 mg tablet (Aricept) 23 mg PO QDAY 08/28/23 09/02/23 levothyroxine 25 mcg capsule 25 mcg PO QDAY 08/28/23 09/02/23 sitagliptin phosphate 100 mg 100 mg PO QDAY 08/28/23 09/02/23 tablet (Januvia) sumatriptan succinate 100 mg tablet 100 mg PO Q2H PRN Migraine Headache 08/28/23 09/02/23 zolpidem 10 mg tablet (Ambien) 10 mg PO HS 08/28/23 09/02/23 Previous Rx's ?Medication ?Instructions ?Recorded amoxicillin 875 mg-potassium 1 tab PO BID #10 tabs 01/17/24 clavulanate 125 mg tablet Allergies Allergy/AdvReac Type Severity Reaction Status Date / Time morphine Allergy Severe Itching Verified 10/19/24 09:12 Review of Systems Review of Systems Systems Reviewed: All systems reviewed, normal except as documented Past Medical History Past Medical History NEUROLOGIC: Positive Dementia and Migraine CARDIAC: Positive Cardiac Disorders, Coronary Artery Disease, Hypercholesterolemia, Congestive Heart Failure and Hypertension GASTROINTESTINAL: Positive Gastrointestinal Disorders and Obesity GENITOURINARY: Positive Genitourinary Disorders, Renal Disease (ckd) and Benign Prostatic Hyperplasia MUSCULOSKELETAL: Positive Musculoskeletal Disorders, Arthritis and Gout ENT: Positive Cataracts ENDOCRINE: Positive Endocrine Disorders, Diabetes Mellitus Type 2 and Hypothyroidism PSYCHO/SOCIAL: Positive Depression and Anxiety Family History FAMILY HISTORY: Positive Family Cardiac Disorders and Family Cancer Surgical History SURGICAL: Positive Cardiac Surgery, Coronary Stent, Angiogram and Abdominal Surgery; Negative Cardiac Catheterization Social History SMOKING STATUS: Never smoker SUBSTANCE USE: does not use ED Exam Narrative Physical exam: GENERAL APPEARANCE: alert and oriented x 4, well-developed, well-nourished, no acute distress HEENT: Normocephalic, atraumatic; pupils equal, round, reactive to light; EOMI; mucous membranes pink, moist; oropharynx clear NECK: Supple LUNGS: CTABL; no wheezes, no rales, no rhonchi HEART: Regular rate, regular rhythm; normal S1, S2; no murmurs ABDOMEN: non distended; normal BS; soft, no tenderness, no guarding, no rebound; no masses, no organomegaly, no hernia BACK: no CVA tenderness EXTREMITIES: atraumatic; no edema NEUROLOGIC: awake; alert and oriented x4; cranial nerves II-XII grossly intact; no focal sensory or motor deficits PSYCHIATRIC: appropriate mood and affect SKIN: warm, dry, normal color; no rashes Course Quality Measures none Orders Category Date Time Status CT Screening NOW Care 10/19/24 12:32 Active EKG (ED ONLY) *Do not use* NOW Care 10/19/24 09:[address] abdomen pelvis w con Stat Exams 10/19/24 12:[address] head/brain wo con Stat Exams 10/19/24 12:32 Completed EKG (ED Only) Stat Exams 10/19/24 09:42 Draft Ammonia Stat Lab 10/19/24 11:09 Completed CBC Stat Lab 10/19/24 11:09 Completed Comprehensive Metabolic Panel Stat Lab 10/19/24 11:09 Completed Hepatitis Acute Panel Stat Lab 10/19/24 11:09 Completed Lactate (Lactic Acid) Stat Lab 10/19/24 11:09 Completed Lipase Stat Lab 10/19/24 11:09 Completed Magnesium Stat Lab 10/19/24 11:09 Completed Thyroid Stimulating Hormone Stat Lab 10/19/24 11:09 Completed Troponin I Stat Lab 10/19/24 11:09 Completed UA, C/S IF [Urinalysis, C/S if Indicated] Stat Lab 10/19/24 10:35 Completed Vital Signs Vital signs: Vital Signs Temperature 98.5 F 10/19/24 09:25 Pulse Rate 100 10/19/24 09:25 Respiratory Rate 18 10/19/24 09:25 Blood Pressure 153/77 H 10/19/24 09:25 Pulse Oximetry (%) 97 10/19/24 09:25 Oxygen Delivery Method Room Air 10/19/24 09:25 Pulse ox is 97% on room air which is adequate. Discharge Plan Plan Patient Disposition: HOME (Self Care) Prescriptions/Referrals Prescriptions/Med Rec: No Action pregabalin [Lyrica] 150 mg capsule 150 mg PO BID tamsulosin 0.4 mg capsule 0.4 mg PO DAILY Patient Comments: TAKE 1 CAPSULE BY MOUTH EVERY DAY 1/2 HOUR FOLLOWING THE SAME MEAL EACH DAY Rx Instructions: 30 min after same meal each day ferrous sulfate 325 mg (65 mg iron) tablet 325 mg PO QDAY Patient Comments: TAKE 1 TABLET BY MOUTH EVERY DAY losartan-hydrochlorothiazide 50-12.5 mg tablet 1 tab PO QDAY atorvastatin 80 mg Tablet 80 mg PO QPM sumatriptan succinate 100 mg Tablet 100 mg PO Q2H PRN (Reason: Migraine Headache) Rx Instructions: do not exceed 2 doses per 24 hrs clopidogrel [Plavix] 75 mg Tablet 75 mg PO QDAY citalopram [Celexa] 20 mg Tablet 20 mg PO QDAY zolpidem [Ambien] 10 mg Tablet 10 mg PO HS Januvia 100 mg Tablet 100 mg PO QDAY levothyroxine 25 mcg Capsule 25 mcg PO QDAY donepezil [Aricept] 23 mg Tablet 23 mg PO QDAY amoxicillin-pot clavulanate 875-125 mg tablet 1 tab PO BID Qty: 10 0RF Referrals: Clair Montana MD [Primary Care Provider] - In 1 week Problem List Clinical Impression: Transaminitis Patient/Caregiver Discharge Instructions Education Materials: Tests for Liver Disease Print Language: [place] Stand Alone Forms: Tess Award Info., Patient Portal Info Letter [facility] [place] Narrative [facility] [place] hospital course: Chantale Lindsey am scribing for and in the presence of Dr. Thomas. Clinical Information Provided by patient and spouse ( provides history ) Medical Records Reviewed [facility] (I reviewed ED visit from 10/17/2024 ) Meds/Rx Considered, not Ordered None Labs/Rad/Tests considered, not Ordered None Chronic Illness/Social Conditions which may negatively complicate care or outcome(s)-explain: other (hx of dementia ) EKG Interpretation EKG #1: Date/time of EK10/19/24 09:42 AM EKG interpretation: Sinus rhythm, rate 74, Q-wave in lead III and V1-V4, no STEMI. Lab Interpretation Labs: interpreted by me Imaging Imaging interpretation: see narrative above Radiology reports / interpretation(s): Procedure(s): CT head/brain wo con Accession Number(s): [id number] cc: Lam Meraz MD; Bozena Thomas MD; Clair Montana MD~ Examination: CT brain head without contrast. 2-D sagittal coronal reconstructions Date and time of exam:October 19, 2024 1523 hours Comparison October 17, 2024 INDICATIONS: Altered mental status today CTDI: vol (mGy):55 DLP: (mGycm):1176 Technique: Multiple CT axial sections of the brain have been obtained, 5 mm slice thickness. Contrast has not been administered. 2-D sagittal, coronal reconstructions have been obtained Low dose protocols were performed. One or more of the following dose reduction techniques were used; automated exposure control, adjustment of the mA and/or KV according to patient size, use of iterative reconstruction technique. Findings: No significant ventricular enlargement. 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 No mass effect or midline shift Basal cisterns are not remarkable. Fourth ventricle is midline. Cranial vault intact. Impression: Negative for acute hemorrhage, mass effect or midline shift Advise clinical correlation and follow-up accordingly Dictated By: Lam Meraz MD Procedure(s): CT abdomen pelvis w con Accession Number(s): [id number] cc: Lam Meraz MD; Bozena Thomas MD; Clair Montana MD~ Examination: CT abdomen with intravenous contrast CT pelvis with intravenous contrast 2-D coronal reconstructions 2-D sagittal reconstructions Date and time of exam:October 19, 2024, 1525 hours Comparison September 11, 2021 INDICATIONS: Generalized abdominal pain and nausea today, history renal calculi. CTDI: vol (mGy) 15.7 DLP: (mGycm) 979 Technique: Multiple axial sections of the abdomen and pelvis have been obtained. 64 slice high-resolution scanner used. 3 mm axial sections have been obtained, post intravenous injection 30 cc [id number] 2-D sagittal, coronal reconstructions obtained. Low dose protocols were performed. One or more of the following dose reduction techniques were used; automated exposure control, adjustment of the mA and/or KV according to patient size, use of iterative reconstruction technique. Findings: Heavy calcification left anterior descending coronary artery No liver or splenic lesion Mucosal edema in the gastric antrum Absent gallbladder No pancreatic or adrenal mass 2 mm nonobstructing right renal calculus, no hydronephrosis or ureteral calculi Significant renal scar formation Aorta normal size No pericecal inflammatory change 3 cm fat-containing umbilical hernia Colonic diverticulosis Mild thickening of urinary bladder wall No significant prostatomegaly Prominent osteopenia with advanced degenerative disc disease L4-L5 IMPRESSION: 2 mm nonobstructing right renal calculus, no hydronephrosis or ureteral calculi 3 cm fat-containing umbilical hernia No bowel obstruction No diverticulitis Mild cystitis pattern Dictated By: Lam Meraz MD Medication Administration(s) none Diagnosis Differential diagnosis: upper GI bleed, bleeding peptic ulcer, hepatocellular injury Most likely dx, and/or detailed dx discussion: Transaminitis Dispositon Disposition: Discharge Home
[2024-10-19 11:23] LABS: Lactate (Lactic Acid) 1.2 mMol/L (0.4-2.0)
[2024-10-19 11:25] LABS: Collection Type, Urine Clean Catch; WBC,Urine 0 /hpf (0-5)
[2024-10-19 11:39] LABS: Basophils # (Auto) 0.1 Thou/mm3 (0.0-0.2); Basophils % (Auto) 1 % (0-2.5); Eosinophils # (Auto) 0.2 Thou/mm3 (0.0-0.5); Eosinophils % (Auto) 2 % (0-10); Hematocrit 39.2 % (41.0-53.0); Hemoglobin 13.9 g/dL (13.5-16.0); Immature Granulocytes Auto 0.06 Thou/mm3 (0.00-0.00); Lymphocytes # (Auto) 1.8 Thou/mm3 (1.0-4.8); Lymphocytes % (Auto) 19 % (10-50); Mean Corpuscular HGB Conc 35.5 g/dl (31.0-37.0); Mean Corpuscular Hemoglobin 31.7 pg (25.0-35.0); Mean Corpuscular Volume 89 fL (80-100); Monocytes # (Auto) 0.8 Thou/mm3 (0.0-0.8); Monocytes % (Auto) 8 % (0-12); Neutrophils # (Auto) 6.6 Thou/mm3 (1.8-7.7); Neutrophils % (Auto) 70 % (37-80); Nucleated Red Blood Cell # 0.00 Thou/mm3 (0.00-0.00); Nucleated Red Blood Cell % 0 /100 WBC (0); Platelet Count 165 Thou/mm3 (140-440); RDW Standard Deviation 45.8 fL (35.1-43.9); Red Blood Count 4.39 Miln/mm3 (4.50-5.90); White Blood Count 9.5 Thou/mm3 (3.8-10.6)
[2024-10-19 11:47] LABS: Ammonia 21 uMol/L (11-32)
[2024-10-19 11:52] LABS: Alanine Aminotransferase 190 U/L (10-49); Albumin, Serum 4.4 gm/dL (3.4-4.8); Albumin/Globulin Ratio 1.2 (1.2-2.2); Alkaline Phosphatase 471 U/L (46-116); Anion Gap 10 (7-16); Aspartate Amino Transferase 108 U/L (0-34); BUN/Creatinine Ratio 18 Ratio (12-20); Bilirubin,Total 1.0 mg/dL (0.3-1.2); Blood Urea Nitrogen 31 mg/dL (9-23); Calcium 10.2 mg/dL (8.3-10.6); Calcium (Corrected) 10.2 mg/dL (8.5-10.1); Carbon Dioxide 23.2 mMol/L (20.0-31.0); Chloride 109 mMol/L (98-107); Creatinine (Component) 1.7 mg/dL (0.6-1.3); Estimated Creatinine Clearance 33.6 mL/min (>60); Globulin 3.7 gm/dL (2.3-3.5); Glucose 139 mg/dL (74-106); Lipase 73 U/L (12-53); Magnesium 1.8 mg/dL (1.6-2.6); Osmolality,Calculated 291 (275-295); Potassium 4.6 mMol/L (3.4-5.1); Sodium 142 mMol/L (136-145); Thyroid Stimulating Hormone 1.27 uIU/mL (0.55-4.78); Total Protein 8.1 gm/dL (5.7-8.2); Troponin I < 0.020 ng/mL (0.0-0.045); eGFR 41 See Note
[2024-10-19 11:52] LABS: Bilirubin,Urine Negative (Negative); Blood,Urine Negative (Negative); Clarity,Urine Clear (Clear/Hazy); Color,Urine Yellow (Lt Yel-Yel); Culture Indicated,Urine Not Indicated; Glucose, Urine Negative (Negative); Ketones,Urine Negative (Negative); Leukocyte Esterase,Urine Negative (Negative); Nitrite,Urine Negative (Negative); PH,Urine 6.0 (5.0-7.0); Protein,Urine 2+ (Neg - Trace); RBC,Urine 3 /hpf (0-3); Specific Gravity,Urine 1.023 (1.001-1.035); Squamous Epithelial Cell,Urine < 1 /hpf (0-5); Urobilinogen,Urine Negative mg/dL (0.0-1.0)
[2024-10-19 12:00] VITALS: BP 162/73; PULSE 72; RESP 16; O2SAT 98
[2024-10-19 12:25] VITALS: BP 139/86; PULSE 73; RESP 18; TEMP 36.3; O2SAT 97
--- NOTE | 2024-10-19 12:32 | XR_ITS ---
Examination: CT abdomen with intravenous contrast CT pelvis with intravenous contrast 2-D coronal reconstructions 2-D sagittal reconstructions Date and time of exam:October 19, 2024, 1525 hours Comparison September 11, 2021 INDICATIONS: Generalized abdominal pain and nausea today, history renal calculi. CTDI: vol (mGy) 15.7 DLP: (mGycm) 979 Technique: Multiple axial sections of the abdomen and pelvis have been obtained. 64 slice high-resolution scanner used. 3 mm axial sections have been obtained, post intravenous injection 30 cc Isovue-300 2-D sagittal, coronal reconstructions obtained. Low dose protocols were performed. One or more of the following dose reduction techniques were used; automated exposure control, adjustment of the mA and/or KV according to patient size, use of iterative reconstruction technique. Findings: Heavy calcification left anterior descending coronary artery No liver or splenic lesion Mucosal edema in the gastric antrum Absent gallbladder No pancreatic or adrenal mass 2 mm nonobstructing right renal calculus, no hydronephrosis or ureteral calculi Significant renal scar formation Aorta normal size No pericecal inflammatory change 3 cm fat-containing umbilical hernia Colonic diverticulosis Mild thickening of urinary bladder wall No significant prostatomegaly Prominent osteopenia with advanced degenerative disc disease L4-L5 IMPRESSION: 2 mm nonobstructing right renal calculus, no hydronephrosis or ureteral calculi 3 cm fat-containing umbilical hernia No bowel obstruction No diverticulitis Mild cystitis pattern
--- NOTE | 2024-10-19 12:32 | XR_ITS ---
Examination: CT brain head without contrast. 2-D sagittal coronal reconstructions Date and time of exam:October 19, 2024 1523 hours Comparison October 17, 2024 INDICATIONS: Altered mental status today CTDI: vol (mGy):55 DLP: (mGycm):1176 Technique: Multiple CT axial sections of the brain have been obtained, 5 mm slice thickness. Contrast has not been administered. 2-D sagittal, coronal reconstructions have been obtained Low dose protocols were performed. One or more of the following dose reduction techniques were used; automated exposure control, adjustment of the mA and/or KV according to patient size, use of iterative reconstruction technique. Findings: No significant ventricular enlargement. 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 No mass effect or midline shift Basal cisterns are not remarkable. Fourth ventricle is midline. Cranial vault intact. Impression: Negative for acute hemorrhage, mass effect or midline shift Advise clinical correlation and follow-up accordingly
[2024-10-19 12:34] LABS: Hepatitis A Antibody IgM Non Reactive (Non React); Hepatitis B Core Antibody IgM Non Reactive (Non React); Hepatitis B Surface Antigen Non Reactive (Non React); Hepatitis C Antibody Non Reactive (Non React)
[2024-10-19 13:58] VITALS: BP 149/74; PULSE 74; RESP 18; TEMP 37.1; O2SAT 98
[2024-10-19 15:58] VITALS: BP 132/75; PULSE 71; RESP 19; TEMP 37; O2SAT 98
== END 2024-10-19 17:28 | disposition home or self-care (01) ==
PROVIDERS: Emergency Provider Emergency Medicine; PCP Internal Medicine
DX: R74.01 Elevation of levels of liver transaminase levels (principal); N20.0 Calculus of kidney; K42.9 Umbilical hernia without obstruction or gangrene; R41.82 Altered mental status, unspecified; E78.00 Pure hypercholesterolemia, unspecified; I13.0 Hypertensive heart and chronic kidney disease with heart failure and stage 1 through stage 4 chronic kidney disease, or unspecified chronic kidney disease; I50.9 Heart failure, unspecified
CPT/HCPCS: 36415; 70450; 74177; 80053; 80074; 81001; 82140; 83605; 83690; 83735; 84443; 84484; 85025; 93005; 99283; A4649; Q9967; A9270

== ENCOUNTER 2024-11-16 09:27 | Emergency (ER) | payer MEDICARE, MEDICAID, SELFPAY ==
[2024-11-16 09:51] VITALS: BP 164/115; PULSE 105; RESP 18; TEMP 36.9; O2SAT 98
[2024-11-16 09:52] VITALS: BMI 21.6
--- NOTE | 2024-11-16 09:55 | PD.EDRME ---
Rapid Medical Screening Exam RME Arrival date/time: 11/16/24 09:27 79-year-old male presents emergency department today with reports that the patient is very anxious reports that is becoming increasingly more anxious does report patient has dementia. Also reports patient has diarrhea today This is RME only patient be seen in main ER for further evaluation states understanding Chief Complaint: Nausea/Vomiting/Diarrhea Vital signs: Vital Signs Temperature 98.4 F 11/16/24 09:51 Pulse Rate 105 H 11/16/24 09:51 Respiratory Rate 18 11/16/24 09:51 Blood Pressure 164/115 H 11/16/24 09:51 Pulse Oximetry (%) 98 11/16/24 09:51 Oxygen Delivery Method Room Air 11/16/24 09:51
--- NOTE | 2024-11-16 17:20 | PC.NURSE ---
PT CALLED IN LOBBY AND OUTSIDE; NO ANSWER X 1.
--- NOTE | 2024-11-16 17:25 | PC.NURSE ---
PT CALLED IN LOBBY AND OUTSIDE; NO ANSWER X 2.
--- NOTE | 2024-11-16 17:30 | PC.NURSE ---
PT CALLED IN LOBBY AND OUTSIDE; NO ANSWER X 3. PT ELOPED.
== END 2024-11-16 17:33 | disposition left against medical advice (07) ==
LOC: SERX 10:29
PROVIDERS: Emergency Provider Emergency Medicine
DX: R11.2 Nausea with vomiting, unspecified (principal); R19.7 Diarrhea, unspecified; F03.90 Unspecified dementia, unspecified severity, without behavioral disturbance, psychotic disturbance, mood disturbance, and anxiety; Z53.29 Procedure and treatment not carried out because of patient's decision for other reasons
CPT/HCPCS: 99281

== ENCOUNTER → 2024-12-14 | Outpatient (CLI) | payer MEDICARE, MEDICAID, SELFPAY ==
[2024-12-14 07:29] LABS: Quantiferon-TB* See Sep Rpt
[2024-12-14 08:41] LABS: Basophils # (Auto) 0.1 Thou/mm3 (0.0-0.2); Basophils % (Auto) 1 % (0-2.5); Eosinophils # (Auto) 0.1 Thou/mm3 (0.0-0.5); Eosinophils % (Auto) 2 % (0-10); Hematocrit 38.9 % (41.0-53.0); Hemoglobin 13.8 g/dL (13.5-16.0); Immature Granulocytes Auto 0.02 Thou/mm3 (0.00-0.00); Lymphocytes # (Auto) 1.9 Thou/mm3 (1.0-4.8); Lymphocytes % (Auto) 26 % (10-50); Mean Corpuscular HGB Conc 35.5 g/dl (31.0-37.0); Mean Corpuscular Hemoglobin 33.3 pg (25.0-35.0); Mean Corpuscular Volume 94 fL (80-100); Monocytes # (Auto) 0.6 Thou/mm3 (0.0-0.8); Monocytes % (Auto) 8 % (0-12); Neutrophils # (Auto) 4.5 Thou/mm3 (1.8-7.7); Neutrophils % (Auto) 63 % (37-80); Nucleated Red Blood Cell # 0.00 Thou/mm3 (0.00-0.00); Nucleated Red Blood Cell % 0 /100 WBC (0); Platelet Count 210 Thou/mm3 (140-440); RDW Standard Deviation 49.2 fL (35.1-43.9); Red Blood Count 4.14 Miln/mm3 (4.50-5.90); White Blood Count 7.2 Thou/mm3 (3.8-10.6)
[2024-12-14 09:14] LABS: Alanine Aminotransferase 201 U/L (10-49); Albumin, Serum 4.5 gm/dL (3.4-4.8); Albumin/Globulin Ratio 1.4 (1.2-2.2); Alkaline Phosphatase 562 U/L (46-116); Anion Gap 11 (7-16); Aspartate Amino Transferase 149 U/L (0-34); BUN/Creatinine Ratio 18 Ratio (12-20); Bilirubin,Total 0.8 mg/dL (0.3-1.2); Blood Urea Nitrogen 25 mg/dL (9-23); C-Reactive Protein < 0.5 mg/dL (0.0-0.9); Calcium 10.4 mg/dL (8.3-10.6); Calcium (Corrected) 10.4 mg/dL (8.5-10.1); Carbon Dioxide 23.9 mMol/L (20.0-31.0); Chloride 107 mMol/L (98-107); Creatinine (Component) 1.4 mg/dL (0.6-1.3); Globulin 3.2 gm/dL (2.3-3.5); Glucose 132 mg/dL (74-106); Osmolality,Calculated 289 (275-295); Potassium 4.3 mMol/L (3.4-5.1); Sodium 142 mMol/L (136-145); Total Protein 7.7 gm/dL (5.7-8.2); eGFR 52 See Note
[2024-12-14 10:31] LABS: Sed Rate (ESR) 13 mm/hr (0-20)
[2024-12-14 13:28] LABS: Cocci Serology, IgM Negative (Negative)
[2024-12-15 14:58] LABS: Cocci Serology, IgG Negative (Negative)
== END | disposition home or self-care (01) ==
LOC: COPL 07:16
PROVIDERS: PCP Nurse Practitioner Family; Referring Provider Nurse Practitioner Family; Visit Provider Nurse Practitioner Family
DX: L40.59 Other psoriatic arthropathy (principal)
CPT/HCPCS: 36415; 80053; 85025; 85652; 86140; 86331; 86480; 86635

== ENCOUNTER → 2024-12-22 | Outpatient (CLI) | payer MEDICARE, MEDICAID, SELFPAY ==
--- NOTE | 2024-12-22 11:00 | XR_ITS ---
Examination: Abdomen sonogram, complete Date and time of exam: December 22, 2024 1051 hours INDICATIONS: Mid abdominal pain beginning one month ago, CT examination October 19, 2024 2 mm right renal calculus. Technique: Multiple real-time grayscale transabdominal sonographic images of the abdomen have been obtained. Findings: Absent gallbladder. Normal common bile duct 0.4 cm Pancreatic head 2.2 cm Aorta not enlarged. Liver 15.0 cm fatty infiltration Normal hepatopedal portal venous flow Patent IVC Right kidney 10.3 cm renal cortex 1.6 cm Multiple renal calculi, the largest in the upper pole 6 mm Left kidney 10.5 cm cortex is 1.6 cm Multiple renal calculi, the largest in the lower pole 5 mm upper pole 6 mm Moderate renal scar formation No hydronephrosis Spleen 11.1 cm IMPRESSION: Multiple bilateral nonobstructing renal calculi, no hydronephrosis
== END | disposition home or self-care (01) ==
PROVIDERS: PCP Nurse Practitioner Family; Referring Provider Nurse Practitioner Family; Visit Provider Nurse Practitioner Family
DX: N20.0 Calculus of kidney (principal)
CPT/HCPCS: 76700

== ENCOUNTER → 2024-12-31 | Outpatient (CLI) | payer MEDICARE, MEDICAID, SELFPAY ==
[2024-12-31 09:00] LABS: Parathyroid Hormone Intact 44.9 pg/ml (18.5-88.0)
[2024-12-31 09:05] LABS: Alanine Aminotransferase 191 U/L (10-49); Albumin, Serum 4.4 gm/dL (3.4-4.8); Alkaline Phosphatase 820 U/L (46-116); Amylase 104 U/L (30-118); Aspartate Amino Transferase 118 U/L (0-34); Bilirubin,Direct 0.7 mg/dL (0.0-0.3); Bilirubin,Total 1.1 mg/dL (0.3-1.2); Calcium 9.9 mg/dL (8.3-10.6); Lipase 85 U/L (12-53); Total Protein 7.8 gm/dL (5.7-8.2)
[2024-12-31 09:49] LABS: Hepatitis A Antibody IgM Non Reactive (Non React); Hepatitis B Core Antibody IgM Non Reactive (Non React); Hepatitis B Surface Antigen Non Reactive (Non React); Hepatitis C Antibody Non Reactive (Non React)
[2025-01-07 06:19] LABS: Actin Antibody (IgG)* <20 U; Mitochondrial Ab NEGATIVE (NEGATIVE)
== END | disposition home or self-care (01) ==
LOC: COPL 07:19
PROVIDERS: Referring Provider Nurse Practitioner; Visit Provider Nurse Practitioner
DX: R74.8 Abnormal levels of other serum enzymes (principal); E83.52 Hypercalcemia; L40.59 Other psoriatic arthropathy
CPT/HCPCS: 36415; 80074; 80076; 82150; 82310; 82977; 83690; 83970; 86015; 86255

== ENCOUNTER → 2025-01-18 | Outpatient (CLI) | payer MEDICARE, MEDICAID, SELFPAY ==
[2025-01-18 08:31] LABS: Basophils # (Auto) 0.1 Thou/mm3 (0.0-0.2); Basophils % (Auto) 1 % (0-2.5); Eosinophils # (Auto) 0.2 Thou/mm3 (0.0-0.5); Eosinophils % (Auto) 3 % (0-10); Hematocrit 34.2 % (41.0-53.0); Hemoglobin 11.5 g/dL (13.5-16.0); Immature Granulocytes Auto 0.02 Thou/mm3 (0.00-0.00); Lymphocytes # (Auto) 1.1 Thou/mm3 (1.0-4.8); Lymphocytes % (Auto) 19 % (10-50); Mean Corpuscular HGB Conc 33.6 g/dl (31.0-37.0); Mean Corpuscular Hemoglobin 32.6 pg (25.0-35.0); Mean Corpuscular Volume 97 fL (80-100); Monocytes # (Auto) 0.6 Thou/mm3 (0.0-0.8); Monocytes % (Auto) 9 % (0-12); Neutrophils # (Auto) 4.1 Thou/mm3 (1.8-7.7); Neutrophils % (Auto) 68 % (37-80); Nucleated Red Blood Cell # 0.00 Thou/mm3 (0.00-0.00); Nucleated Red Blood Cell % 0 /100 WBC (0); Platelet Count 129 Thou/mm3 (140-440); RDW Standard Deviation 48.4 fL (35.1-43.9); Red Blood Count 3.53 Miln/mm3 (4.50-5.90); White Blood Count 6.0 Thou/mm3 (3.8-10.6)
[2025-01-18 08:43] LABS: Parathyroid Hormone Intact 49.1 pg/ml (18.5-88.0)
[2025-01-18 08:44] LABS: Glucose Estimated Average 134 mg/dL (80-131); Hemoglobin A1C 6.3 % Hgb (4.8-6.0)
[2025-01-18 08:52] LABS: Alanine Aminotransferase 132 U/L (10-49); Albumin, Serum 4.2 gm/dL (3.4-4.8); Albumin/Globulin Ratio 1.4 (1.2-2.2); Alkaline Phosphatase 494 U/L (46-116); Anion Gap 9 (7-16); Aspartate Amino Transferase 113 U/L (0-34); BUN/Creatinine Ratio 26 Ratio (12-20); Bilirubin,Total 0.8 mg/dL (0.3-1.2); Blood Urea Nitrogen 41 mg/dL (9-23); Calcium 9.6 mg/dL (8.3-10.6); Calcium (Corrected) 9.6 mg/dL (8.5-10.1); Carbon Dioxide 24.1 mMol/L (20.0-31.0); Cardiac Risk Estimate 3.9 RATIO (4.0-6.7); Chloride 111 mMol/L (98-107); Cholesterol 155 mg/dL (132-200); Creatinine (Component) 1.6 mg/dL (0.6-1.3); Globulin 2.9 gm/dL (2.3-3.5); Glucose 141 mg/dL (74-106); HDL Cholesterol 40 mg/dL (40-60); LDL Cholesterol,Calculated 84 mg/dL (0-130); Osmolality,Calculated 298 (275-295); Potassium 4.8 mMol/L (3.4-5.1); Sodium 144 mMol/L (136-145); Thyroid Stimulating Hormone 2.33 uIU/mL (0.55-4.78); Total Protein 7.1 gm/dL (5.7-8.2); Triglycerides 154 mg/dL (30-150); eGFR 44 See Note
[2025-01-18 11:25] LABS: Collection Type, Urine Catheter; Squamous Epithelial Cell,Urine 0 /hpf (0-5)
[2025-01-18 12:39] LABS: Bilirubin,Urine Negative (Negative); Blood,Urine Negative (Negative); Clarity,Urine Clear (Clear/Hazy); Color,Urine Lt-Yellow (Lt Yel-Yel); Glucose, Urine Negative (Negative); Ketones,Urine Negative (Negative); Leukocyte Esterase,Urine Negative (Negative); Nitrite,Urine Negative (Negative); PH,Urine 6.0 (5.0-7.0); Protein,Urine Trace (Neg - Trace); RBC,Urine 1 /hpf (0-3); Specific Gravity,Urine 1.018 (1.001-1.035); Urobilinogen,Urine Negative mg/dL (0.0-1.0); WBC,Urine < 1 /hpf (0-5)
[2025-01-18 12:43] LABS: Creatinine MALB Rnd Ur 62 mg/dL (30-125); Microalbumin Creat Ratio 124 mg/gCrea (<30); Microalbumin, Random Urine 77 mg/L (0-300)
== END | disposition home or self-care (01) ==
LOC: CDIM 07:10 → COPL 07:12
PROVIDERS: PCP Internal Medicine; Referring Provider Internal Medicine; Visit Provider Internal Medicine
DX: I12.9 Hypertensive chronic kidney disease with stage 1 through stage 4 chronic kidney disease, or unspecified chronic kidney disease (principal); E11.22 Type 2 diabetes mellitus with diabetic chronic kidney disease; N18.30 Chronic kidney disease, stage 3 unspecified; E78.5 Hyperlipidemia, unspecified; E55.9 Vitamin D deficiency, unspecified
CPT/HCPCS: 36415; 80053; 80061; 81001; 82043; 82570; 83036; 83970; 84443; 85025

== ENCOUNTER → 2025-02-24 | Outpatient (CLI) | payer MEDICARE, MEDICAID, SELFPAY ==
--- NOTE | 2025-02-24 | XR_ITS ---
EXAMINATION: PA lateral chest 2 views TECHNIQUE: Upright PA lateral chest 2 views Date and time: January 25, 2025, 1146 hours INDICATIONS: Chest pain beginning 3 days ago. FINDINGS: Normal heart size Lungs are clear Prominent osteopenia IMPRESSION: No active disease
== END | disposition home or self-care (01) ==
PROVIDERS: PCP Nurse Practitioner Family; Referring Provider Nurse Practitioner Family; Visit Provider Nurse Practitioner Family
DX: R07.89 Other chest pain (principal)
CPT/HCPCS: 71046